=== PATIENT | female | born 1990 | race Caucasian/White ===

== ENCOUNTER 2022-06-14 01:06 | Inpatient (IN) ==
[2022-06-14] MEDS ORDERED: ADENOSINE IV SOLN 3 MG/ML 2 ML VIAL IV STA ×2 (01:23)
[2022-06-14] MEDS ORDERED: SODIUM CHLORIDE 0.9% 1000ML 1,000 ML IV ONE (01:23)
[2022-06-14] MEDS ORDERED: dilTIAZem HCl 5 MG/ML 5 ML VIAL IV ONE (01:41)
[2022-06-14] MEDS ORDERED: dilTIAZem HCl 5 MG/ML 5 ML VIAL IV STA (01:43)
[2022-06-14] MEDS ORDERED: SODIUM CHLORIDE 0.9% 1000ML 2,000 ML IV ONE (01:43)
[2022-06-14] MEDS ORDERED: AMIODARONE / D5W 150 MG/100 ML BAG IV STA (01:51)
[2022-06-14] MEDS ORDERED: 0.2 MICRON FILTER SET 1 EACH IV ONE ×2 (01:51→02:06)
[2022-06-14 02:04] LABS: iSTAT Creatinine 0.8 mg/dl (0.6-1.3); iSTAT Hemoglobin 14.6 g/dl (12.0-16.0); iSTAT Ionized Calcium 1.08 mmol/l (1.12-1.32); iSTAT Potassium 4.1 mmol/L (3.3-5.0)
[2022-06-14 02:12] LABS: Basophils # (auto) 0.08 K/uL (0-0.2); Basophils % (auto) 0.4 %; Eosinophils # (auto) 0.03 K/uL (0-0.50); Eosinophils % (auto) 0.2 %; Hematocrit (blood only) 42.1 % (37.0-47.0); Hemoglobin 13.8 g/dl (12.0-16.0); Immature Granulocytes # (auto) 0.07 K/uL (0.01-0.20); Immature Granulocytes % (auto) 0.4 %; Lymphocytes # (auto) 2.34 K/uL (1.2-3.4); Lymphocytes % (auto) 12.9 %; Mean Corpuscular Hemoglobin 29.6 pg (25.0-34.0); Mean Corpuscular Hgb Conc 32.8 g/dL (32.0-36.0); Mean Corpuscular Volume 90.3 fL (80.0-100.0); Mean Platelet Volume 13.4 fL (9.4-12.4); Monocytes # (auto) 1.07 K/uL (0.11-0.59); Monocytes % (auto) 5.9 %; Neutrophils # (auto) 14.55 K/uL (1.40-6.50); Neutrophils % (auto) 80.2 %; Platelet Count 228 K/uL (130-400); RDW Coefficient of Variation 13.4 % (11.5-14.5); RDW Standard Deviation 44.1 fL (36.4-46.3); Red Blood Count 4.66 M/uL (4.20-5.40); White Blood Count 18.14 K/ul (4.8-10.8)
[2022-06-14] MEDS ORDERED: AMIODARONE / D5W 360 MG/200 ML BAG IV SCH (02:15)
[2022-06-14 02:20] LABS: Alanine Aminotransferase 18 U/L (7-52); Albumin Globulin Ratio 1.1 (0.9-2); Albumin Level 3.8 gm/dl (3.4-5.0); Alkaline Phosphatase 73 U/L (34-104); Anion Gap 10 (3-11); Aspartate Aminotransferase 16 U/L (13-39); BUN Creatinine Ratio 19.3 (10-20); Bilirubin,Total 0.9 mg/dl (0.2-1.0); Blood Urea Nitrogen 16 mg/dl (6-23); Calcium 8.7 mg/dl (8.5-10.1); Carbon Dioxide 21 mmol/L (21-32); Chloride 107 mmol/L (98-107); Est GFR (African American) 108.9 ml/min; Globulin 3.5 gm/dl (2.5-4.0); Glucose 129 mg/dl (70-99(Fasting)); Magnesium 1.9 mg/dl (1.7-2.4); Potassium 4.1 mmol/L (3.5-5.1); Sodium 138 mmol/L (136-145); Total Protein 7.3 gm/dl (6.0-8.3)
[2022-06-14 02:27] LABS: Troponin I High Sensitivity 40.5 pg/ml (0-14)
[2022-06-14 02:33] LABS: Pregnancy Test, Serum Negative (Negative)
--- NOTE | 2022-06-14 02:47 | Emergency Department Note ---
History of Present Illness General Chief complaint: Tachycardia Stated complaint: HIGH HEART RATE,TROUBLE BREATHING Time Seen by Provider: 06/14/22 01:16 History of Present Illness This 32-year-old presents to the ER complaining of chest discomfort and racing heart for the past 3 days steadily getting worse. Patient was just started on BuSpar and hydroxyzine for anxiety and depression by the PCP. Patient denies recent illness, fever, chills, flulike illness, vomiting, diarrhea, alcohol or drug use. No prior heart problems. No excessive caffeine. Allergies Allergy/AdvReac Type Severity Reaction Status Date / Time No Known Allergies Allergy Mild Unverified 11/19/14 06:26 Past Med/Surg History Social History Smoking Status: Never smoker Second Hand Exposure: No; Do You Dip or Chew Tobacco: No; Tobacco Cessation Education Requested by Patient: No Hx Alcohol Use: No Hx Substance Use: No Preferred Language: Peruvian Communication Ability: Effective Inspector Government Property Required: No Beliefs That Will Affect Care: None Current Living Situation: Parent Other Information That Helps Us Care for You: No Feels Safe at Home: Yes Safety Concerns: Feels Safe At This Time Assistive Devices: None Assistive Devices Comment: Reading glasses Review of Systems A total of 10 systems reviewed and were otherwise negative Physical Exam Vital Signs Vital Signs - 24 hr 06/14/22 03:06 06/14/22 02:46 06/14/22 02:46 Pulse Rate 155 H Pulse Rate [Finger] 143 H Pulse Rate from SpO2 Sensor 290 H Respiratory Rate 22 23 Blood Pressure 130/106 H Blood Pressure [Left Arm] 107/78 Blood Pressure Mean 114 Blood Pressure Mean [Left Arm] 87 Pulse Oximetry 94 95 Oxygen Delivery Method 06/14/22 02:50 06/14/22 02:50 06/14/22 03:00 Pulse Rate 155 H 155 H Pulse Rate [Finger] Pulse Rate from SpO2 Sensor 155 H 182 H Respiratory Rate 18 16 Blood Pressure 141/120 H Blood Pressure [Left Arm] Blood Pressure Mean 127 Blood Pressure Mean [Left Arm] Pulse Oximetry 95 94 Oxygen Delivery Method 06/14/22 03:02 06/14/22 03:02 06/14/22 03:04 Pulse Rate 148 H 154 H Pulse Rate [Finger] Pulse Rate from SpO2 Sensor 248 H 234 H Respiratory Rate 16 22 Blood Pressure 77/47 L Blood Pressure [Left Arm] Blood Pressure Mean 57 Blood Pressure Mean [Left Arm] Pulse Oximetry 95 94 Oxygen Delivery Method 06/14/22 03:04 06/14/22 03:06 06/14/22 03:45 Pulse Rate 149 H 141 H Pulse Rate [Finger] Pulse Rate from SpO2 Sensor Respiratory Rate 21 Blood Pressure 105/79 107/78 113/89 Blood Pressure [Left Arm] Blood Pressure Mean 87 87 Blood Pressure Mean [Left Arm] Pulse Oximetry 95 Oxygen Delivery Method Room Air 06/14/22 04:30 Pulse Rate 144 H Pulse Rate [Finger] Pulse Rate from SpO2 Sensor Respiratory Rate Blood Pressure 186/151 H Blood Pressure [Left Arm] Blood Pressure Mean Blood Pressure Mean [Left Arm] Pulse Oximetry Oxygen Delivery Method VITALS: Vitals are noted on the nurse's note and reviewed by myself. Vital signs tachycardic GENERAL: Pleasant female, in no acute distress, nondiaphoretic, well-developed well-nourished. SKIN: The skin was without rashes, erythema, or bruising. There is no tenting of the skin. Capillary reflex less than 2 seconds. HEAD: Normocephalic atraumatic. EARS: External auditory canals clear, tympanic membranes pearly conn without erythema or effusion bilaterally. EYES: Pupils equal round and reactive to light and accommodation. Conjunctivae without injection, sclerae without icterus. Extraocular movements intact. NOSE: Patent, turbinates without inflammation or discharge. MOUTH: Mucous membranes moist. Pharynx without erythema or exudate. Uvula midline. Airway patent. Tongue does not deviate. NECK: Supple without nuchal rigidity. No lymphadenopathy. No thyromegaly. Cervical spine is nontender. No JVD. HEART: Tachycardic rate in the 190s LUNGS: Clear to auscultation bilaterally without wheezes, rales or rhonchi. No retractions or accessory muscle use. ABDOMEN: Positive bowel sounds x 4. Normal tympanic percussion. Soft, nontender, without masses or organomegaly. Gustafson sign negative. No guarding or rebound tenderness. No CVA tenderness MUSCULOSKELETAL: No muscle atrophy, erythema, noted. NEURO: Patient was alert and oriented to person place and time. Normal sensation to light and sharp touch. No focal neurological deficits. Course Administered Medications Buspirone HCl (Buspirone 5 Mg Tab) 5 mg PO BID [facility] Stop: 07/14/22 20:59 Last Admin: 06/14/22 20:16 Dose: 5 mg Documented By: MURPHY Heparin Sodium/Dextrose (Heparin Sodium/Dextrose) 25,000 units in 500 mls @ 28 mls/hr IV .[id number] [facility]; Protocol Stop: 07/14/22 03:59 Last Admin: 06/15/22 01:35 Dose: 1,400 units/hr, 28 mls/hr Documented By: MURPHY Co-signed By: DSRonak Titration: 06/15/22 01:35 Dose: 1,400 units/hr, 28 mls/hr Documented By: MURPHY Co-signed By: DS Titration: 06/14/22 20:10 Dose: 1,400 units/hr, 28 mls/hr Documented By: MURPHY Co-signed By: DS Titration: 06/14/22 18:59 Dose: 1,200 units/hr, 24 mls/hr Documented By: MURPHY Co-signed By: CYNDEE Titration: 06/14/22 13:17 Dose: 1,200 units/hr, 24 mls/hr Documented By: CYNDEE Co-signed By: BANNER Admin: 06/14/22 04:57 Dose: 1,000 units/hr, 20 mls/hr Documented By: JALIL Co-signed By: CHELITA Metoprolol Succinate (Metoprolol Succ 25mg Ext Rel Tab) 25 mg PO BID [facility] Stop: 07/14/22 20:59 Last Admin: 06/14/22 20:15 Dose: 25 mg Documented By: MURPHY Discontinued Medications Adenosine (Adenosine Iv Soln 3 Mg/Ml 2 Ml Vial) 6 mg IV NOW STA Stop: 06/14/22 01:24 Last Admin: 06/14/22 01:59 Dose: 6 mg Documented By: ASW Adenosine (Adenosine Iv Soln 3 Mg/Ml 2 Ml Vial) 12 mg IV NOW STA Stop: 06/14/22 01:24 Last Admin: 06/14/22 01:59 Dose: 12 mg Documented By: ASHLEY Benzocaine/Butamben/Tetracaine HCl (Benzocaine/Tetracain/Butam 50 Appln/5 Gm Can) Confirm Administered Dose 50 appln EXT .STK-MED ONE Stop: 06/14/22 11:15 Last Admin: 06/14/22 17:36 Dose: Not Given Documented By: CYNDEE Diltiazem HCl (Diltiazem Hcl 5 Mg/Ml 5 Ml Vial) Confirm Administered Dose 25 mg IV .STK-MED ONE Stop: 06/14/22 01:42 Last Admin: 06/14/22 01:58 Dose: Not Given Documented By: ASHLEY Diltiazem HCl (Diltiazem Hcl 5 Mg/Ml 5 Ml Vial) 20 mg IV NOW STA Stop: 06/14/22 01:44 Last Admin: 06/14/22 01:58 Dose: 20 mg Documented By: ASHLEY Co-signed By: ASHLEY(2) Furosemide (Furosemide 40 Mg/4 Ml Vial) 40 mg IV ONE ONE Stop: 06/15/22 01:21 Last Admin: 06/15/22 01:31 Dose: 40 mg Documented By: MURPHY Heparin Sodium (Porcine) (Heparin Sod (Porcine) 1000 Unit/Ml) 1 units IV NOW ONE Stop: 06/14/22 03:50 Last Admin: 06/14/22 04:33 Dose: 4,000 units Documented By: JALIL Co-signed By: HECTOR Heparin Sodium (Porcine) (Heparin Sod (Porcine) 1000 Unit/Ml) 4,000 units IV NOW ONE Stop: 06/14/22 20:31 Last Admin: 06/14/22 20:29 Dose: 4,000 units Documented By: MURPHY Co-signed By: TRU Heparin Sodium/Dextrose (Heparin Iv Adult Wt-Based Low-Dose With Bolus Protocol) 1 each IV NOW STA; Protocol Stop: 06/14/22 03:33 Last Admin: 06/14/22 04:38 Dose: Not Given Documented By: JALIL Sodium Chloride (Nss 1000ml) 1,000 mls @ 999 mls/hr IV .Q1H1M ONE Stop: 06/14/22 02:23 Last Infusion: 06/14/22 02:52 Dose: 0 mls/hr Documented By: Admin: 06/14/22 01:58 Dose: 999 mls/hr Documented By: ASHLEY Sodium Chloride (Nss 1000ml) 2,000 mls @ 999 mls/hr IV .Q2H1M ONE Stop: 06/14/22 03:43 Last Infusion: 06/14/22 04:27 Dose: 0 mls/hr Documented By: Admin: 06/14/22 01:58 Dose: 999 mls/hr Documented By: ASHLEY Amiodarone HCl/Dextrose (Nexterone / D5w) 150 mg in 100 mls @ 600 mls/hr IV NOW STA Stop: 06/14/22 02:00 Last Infusion: 06/14/22 02:07 Dose: 0 mls/hr Documented By: ASHLEY Co-signed By: ASHLEY(2) Admin: 06/14/22 01:58 Dose: 600 mls/hr Documented By: ASW Co-signed By: ASHLEY(2) Amiodarone HCl/Dextrose (Nexterone / D5w) 360 mg in 200 mls @ 16.667 mls/hr IV .Q12H [facility] Stop: 07/14/22 02:14 Last Infusion: 06/14/22 09:38 Dose: 0 mg/min, 0 mls/hr Documented By: HEATH Co-signed By: AMAURY Admin: 06/14/22 02:14 Dose: 0.5 mg/min, 16.7 mls/hr Documented By: ASHLEY Co-signed By: ASHLEY(2) Magnesium Sulfate/Dextrose (Magnesium Sulfate / D5w) 1 gm in 100 mls @ 50 mls/hr IV ONE ONE Stop: 06/14/22 11:35 Last Infusion: 06/14/22 11:43 Dose: 0 mls/hr Documented By: Admin: 06/14/22 09:45 Dose: 50 mls/hr Documented By: HEATH Heparin Sodium (Porcine) 4,000 (units/ Syringe) 4 mls @ 10 mls/min IV TODAY@1345 ONE Stop: 06/14/22 13:46 Last Admin: 06/14/22 13:36 Dose: 10 mls/min Documented By: CYNDEE Co-signed By: BOBY Metoprolol Tartrate (Metoprolol Tartrate 50 Mg Tab) 25 mg PO NOW STA Stop: 06/14/22 03:33 Last Admin: 06/14/22 03:45 Dose: 25 mg Documented By: HECTOR Metoprolol Tartrate (Metoprolol Tartrate 1 Mg/Ml Vial) 5 mg IV NOW STA Stop: 06/14/22 03:33 Last Admin: 06/14/22 03:45 Dose: 5 mg Documented By: KMF Metoprolol Tartrate (Metoprolol Tartrate 1 Mg/Ml Vial) 5 mg IV NOW STA Stop: 06/14/22 04:25 Last Admin: 06/14/22 04:30 Dose: 5 mg Documented By: JALIL Metoprolol Tartrate (Metoprolol Tartrate 25 Mg Tab) 25 mg PO Q6H [facility] Stop: 07/14/22 07:59 Last Admin: 06/14/22 09:54 Dose: 25 mg Documented By: HEATH Metoprolol Tartrate (Metoprolol Tartrate 1 Mg/Ml Vial) 2.5 mg IV NOW STA Stop: 06/14/22 06:41 Last Admin: 06/14/22 07:13 Dose: 2.5 mg Documented By: LMP Critical Care Time Critical Care Time: Yes Total Critical Care Time: 65 I have personally spent 65 minutes of critical care time in the direct management of this patient. This includes bedside care, interpretation of diagnostic studies, and testing, discussion with consultants, patient, and family members, and other required patient management activities. This 65 minutes is in excess of all separately billable procedures. Medical Decision Making Medical Records Attestation: I reviewed the patient's medical records. Home Medications Current Medication List: was personally reviewed by me Laboratory Data Attestation: I reviewed the patient's lab results. 06/14/22 01:45 06/14/22 01:45 Lab Results 06/14/22 06/14/22 06/14/22 Range/Units 01:45 01:45 01:45 WBC 18.14 H (4.8-10.8) K/ul RBC 4.66 (4.20-5.40) M/uL Hgb 13.8 (12.0-16.0) g/dl POC Hgb (12.0-16.0) g/dl Hct 42.1 (37.0-47.0) % POC Hct (37-47) % MCV 90.3 (80.0-100.0) fL MCH 29.6 (25.0-34.0) pg MCHC 32.8 (32.0-36.0) g/dL RDW Std Deviation 44.1 (36.4-46.3) fL RDW Coeff of Sherin 13.4 (11.5-14.5) % Plt Count 228 (130-400) K/uL MPV 13.4 H (9.4-12.4) fL Immature Gran % (Auto) 0.4 % Neut % (Auto) 80.2 % Lymph % (Auto) 12.9 % [place] % (Auto) 5.9 % Eos % (Auto) 0.2 % Baso % (Auto) 0.4 % Neut # (Auto) 14.55 H (1.40-6.50) K/uL Lymph # (Auto) 2.34 (1.2-3.4) K/uL [place] # (Auto) 1.07 H (0.11-0.59) K/uL Eos # (Auto) 0.03 (0-0.50) K/uL Baso # (Auto) 0.08 (0-0.2) K/uL Immature Gran # (Auto) 0.07 (0.01-0.20) K/uL PT (9.0-12.0) Seconds INR (0.9-1.1) APTT (21.0-31.0) Seconds PTT Ratio POC Sodium (135-144) mmol/L Sodium 138 (136-145) mmol/L POC Potassium (3.3-5.0) mmol/L Potassium 4.1 (3.5-5.1) mmol/L POC Chloride (101-112) mmol/L Chloride 107 (98-107) mmol/L Carbon Dioxide 21 (21-32) mmol/L POC Total CO2 (24-31) mmol/L Anion Gap 10 (3-11) POC Anion Gap (16-25) mmol/L POC BUN (7-18) mg/dl BUN 16 (6-23) mg/dl Creatinine 0.83 (0.6-1.2) mg/dl POC Creatinine (0.6-1.3) mg/dl Est Cr Clr Drug Dosing Not Reportable Est GFR ( Amer) 108.9 ml/min Est GFR (Non-Af Amer) 94.0 ml/min BUN/Creatinine Ratio 19.3 (10-20) Glucose 129 H (70-99(Fasting)) mg/dl POC Glucose (other) (70-99) mg/dl Calcium 8.7 (8.5-10.1) mg/dl POC Ioniz Calcium Belia (1.12-1.32) mmol/l Magnesium 1.9 (1.7-2.4) mg/dl Total Bilirubin 0.9 (0.2-1.0) mg/dl AST 16 (13-39) U/L ALT 18 (7-52) U/L Alkaline Phosphatase 73 (34-104) U/L Troponin I High Sens 40.5 H (0-14) pg/ml B-Natriuretic Peptide (0-100) pg/ml Total Protein 7.3 (6.0-8.3) gm/dl Albumin 3.8 (3.4-5.0) gm/dl Globulin 3.5 (2.5-4.0) gm/dl Albumin/Globulin Ratio 1.1 (0.9-2) TSH 1.552 (0.300-4.500) uIu/ml HCG, Qual (Negative) SARS-CoV-2, RNA, NAAT (NEGATIVE) 06/14/22 06/14/22 06/14/22 Range/Units 01:45 01:45 01:45 WBC (4.8-10.8) K/ul RBC (4.20-5.40) M/uL Hgb (12.0-16.0) g/dl POC Hgb (12.0-16.0) g/dl Hct (37.0-47.0) % POC Hct (37-47) % MCV (80.0-100.0) fL MCH (25.0-34.0) pg MCHC (32.0-36.0) g/dL RDW Std Deviation (36.4-46.3) fL RDW Coeff of Sherin (11.5-14.5) % Plt Count (130-400) K/uL MPV (9.4-12.4) fL Immature Gran % (Auto) % Neut % (Auto) % Lymph % (Auto) % [place] % (Auto) % Eos % (Auto) % Baso % (Auto) % Neut # (Auto) (1.40-6.50) K/uL Lymph # (Auto) (1.2-3.4) K/uL [place] # (Auto) (0.11-0.59) K/uL Eos # (Auto) (0-0.50) K/uL Baso # (Auto) (0-0.2) K/uL Immature Gran # (Auto) (0.01-0.20) K/uL PT 13.1 H (9.0-12.0) Seconds INR 1.2 H (0.9-1.1) APTT 27.6 (21.0-31.0) Seconds PTT Ratio 1.0 POC Sodium (135-144) mmol/L Sodium (136-145) mmol/L POC Potassium (3.3-5.0) mmol/L Potassium (3.5-5.1) mmol/L POC Chloride (101-112) mmol/L Chloride (98-107) mmol/L Carbon Dioxide (21-32) mmol/L POC Total CO2 (24-31) mmol/L Anion Gap (3-11) POC Anion Gap (16-25) mmol/L POC BUN (7-18) mg/dl BUN (6-23) mg/dl Creatinine (0.6-1.2) mg/dl POC Creatinine (0.6-1.3) mg/dl Est Cr Clr Drug Dosing Est GFR ( Amer) ml/min Est GFR (Non-Af Amer) ml/min BUN/Creatinine Ratio (10-20) Glucose (70-99(Fasting)) mg/dl POC Glucose (other) (70-99) mg/dl Calcium (8.5-10.1) mg/dl POC Ioniz Calcium Belia (1.12-1.32) mmol/l Magnesium (1.7-2.4) mg/dl Total Bilirubin (0.2-1.0) mg/dl AST (13-39) U/L ALT (7-52) U/L Alkaline Phosphatase (34-104) U/L Troponin I High Sens (0-14) pg/ml B-Natriuretic Peptide 649 H (0-100) pg/ml Total Protein (6.0-8.3) gm/dl Albumin (3.4-5.0) gm/dl Globulin (2.5-4.0) gm/dl Albumin/Globulin Ratio (0.9-2) TSH (0.300-4.500) uIu/ml HCG, Qual Negative (Negative) SARS-CoV-2, RNA, NAAT (NEGATIVE) 06/14/22 06/14/22 06/14/22 Range/Units 01:48 02:11 04:18 WBC (4.8-10.8) K/ul RBC (4.20-5.40) M/uL Hgb (12.0-16.0) g/dl POC Hgb 14.6 (12.0-16.0) g/dl Hct (37.0-47.0) % POC Hct 43 (37-47) % MCV (80.0-100.0) fL MCH (25.0-34.0) pg MCHC (32.0-36.0) g/dL RDW Std Deviation (36.4-46.3) fL RDW Coeff of Sherin (11.5-14.5) % Plt Count (130-400) K/uL MPV (9.4-12.4) fL Immature Gran % (Auto) % Neut % (Auto) % Lymph % (Auto) % [place] % (Auto) % Eos % (Auto) % Baso % (Auto) % Neut # (Auto) (1.40-6.50) K/uL Lymph # (Auto) (1.2-3.4) K/uL [place] # (Auto) (0.11-0.59) K/uL Eos # (Auto) (0-0.50) K/uL Baso # (Auto) (0-0.2) K/uL Immature Gran # (Auto) (0.01-0.20) K/uL PT (9.0-12.0) Seconds INR (0.9-1.1) APTT (21.0-31.0) Seconds PTT Ratio POC Sodium 141 (135-144) mmol/L Sodium (136-145) mmol/L POC Potassium 4.1 (3.3-5.0) mmol/L Potassium (3.5-5.1) mmol/L POC Chloride 106 (101-112) mmol/L Chloride (98-107) mmol/L Carbon Dioxide (21-32) mmol/L POC Total CO2 22 L (24-31) mmol/L Anion Gap (3-11) POC Anion Gap 18.0 (16-25) mmol/L POC BUN 15 (7-18) mg/dl BUN (6-23) mg/dl Creatinine (0.6-1.2) mg/dl POC Creatinine 0.8 (0.6-1.3) mg/dl Est Cr Clr Drug Dosing Est GFR ( Amer) ml/min Est GFR (Non-Af Amer) ml/min BUN/Creatinine Ratio (10-20) Glucose (70-99(Fasting)) mg/dl POC Glucose (other) 133 H (70-99) mg/dl Calcium (8.5-10.1) mg/dl POC Ioniz Calcium Belia 1.08 L (1.12-1.32) mmol/l Magnesium (1.7-2.4) mg/dl Total Bilirubin (0.2-1.0) mg/dl AST (13-39) U/L ALT (7-52) U/L Alkaline Phosphatase (34-104) U/L Troponin I High Sens 47.2 H (0-14) pg/ml B-Natriuretic Peptide (0-100) pg/ml Total Protein (6.0-8.3) gm/dl Albumin (3.4-5.0) gm/dl Globulin (2.5-4.0) gm/dl Albumin/Globulin Ratio (0.9-2) TSH (0.300-4.500) uIu/ml HCG, Qual (Negative) SARS-CoV-2, RNA, NAAT NEGATIVE (NEGATIVE) Imaging Data Attestation: I personally reviewed and interpreted this imaging study as follows: MDM Narrative Prior records/ancillary studies reviewed. Triage Nursing notes reviewed. Additional history obtained from family. The patient's history was concerning for palpitations. Differential diagnosis: Etiologies such as premature contractions, electrolyte abnormality, cardiac dysrhythmia, thyroid dysfunction, pulmonary embolism, infection, gastrointestinal, as well as others were entertained. Physical examination: Benign as above. ER treatment provided: Valsalva maneuvers, adenosine, Cardizem, amiodarone, 2 L IV fluids were ordered Limited bedside ultrasound shows no pericardial effusion per my independent interpretation Heparin and Lopressor ordered per cardiology's recommendations. On reassessment the patient felt better. Diagnostic interpretation by me: An order was placed for continuous cardiac monitoring. The monitor shows a rate of 120-230 with a rapid atrial flutter rhythm per my interpretation. The electrocardiogram was ordered for tachycardia. EKG: Poor baseline, ventricular rate of 179, no obvious ST elevation, hard to decipher P waves. Impression supraventricular rhythm concerning for SVT versus A-fib or a flutter with RVR per my independent interpretation The monitor was reviewed after adenosine and patient was in a flutter on the monitor. The labs Independently Interpreted by myself revealed elevated troponin. Leukocytosis. Negative hCG Imaging studies: Chest x-ray with no acute consolidation, pneumothorax or free air per my independent interpretation Consultation: A consultation was placed with the pharmacist Mitchell and states that hydroxyzine can cause prolonged QT and BuSpar does not cause tachydysrhythmias. I spoke with the Hospitalist. The case was discussed and diagnostics were reviewed. The patient was evaluated in the ER for further treatment. I consulted cardiology as the patient was still tachycardic and her blood pressure is dropping. Dr. Mitchell recommends Lopressor p.o. and IV heparin low- dose and if she becomes hypotensive to follow ACLS protocol. This appears to be consistent with new onset super ventricular tachycardia con cerning for a flutter. Patient initially came in with a tachycardic rhythm in the 150s to the 200s. EKG was hard to decipher secondary to poor baseline. After adenosine the monitor was showing a flutter patient was given Cardizem and then amiodarone as the rhythm did not slow down. She was started on a drip. She was reassessed multiple times. Medicine was consulted and the case was discussed. The new medicines were discussed with the pharmacist and states she does not believe this could cause the symptoms today. Patient is agreeable to treatment plan of admission. Medicine will admit.. By the evaluation outlined above emergent etiologies such as electrolyte abnormality, , thyroid dysfunction, infection, as well as others were deemed relatively unlikely. The pt informed about the findings as listed above. All questions were answered and pleased with the treatment. The chart was completed utilizing [employer] Speech voice recognition software. Grammatical errors, random word insertions, pronoun errors, and incomplete sentences are an occassional consequence of this system due to software limitations, ambient noise, and hardware issues. Any formal questions or concerns about the content, text, or information contained within the body of this dictation should be directly addressed to the physician broker assistant for clarification. Impression & Plan Atrial flutter with rapid ventricular response Discharge Plan Visit Data Chief Complaint: Tachycardia Stated Complaint: HIGH HEART RATE,TROUBLE BREATHING ED Provider: Ashanti Montes ED Midlevel Provider: Juanita Salazar Discharge Problem: Atrial flutter with rapid ventricular response Patient Disposition: Admitted As Inpatient Condition: Fair Discharge Instructions Interventions: ED Discharge Assessment Last Done: 06/14/22 04:52
[2022-06-14] MEDS ORDERED: METOPROLOL TARTRATE 50 MG TAB PO STA (03:32)
[2022-06-14] MEDS ORDERED: Heparin IV Adult Wt-Based Low-Dose WITH Bolus Protocol IV STA (03:32)
[2022-06-14] MEDS ORDERED: METOPROLOL TARTRATE 1 MG/ML VIAL IV STA ×3 (03:32→06:40)
[2022-06-14] MEDS ORDERED: HEPARIN SOD (PORCINE) 1000 UNIT/ML IV ONE ×3 (03:49→20:30)
[2022-06-14 04:55] LABS: INR 1.2 (0.9-1.1); Partial Thromboplastin Time 27.6 Seconds (21.0-31.0); Prothrombin Time 13.1 Seconds (9.0-12.0)
[2022-06-14] MEDS: HEPARIN SODIUM/DEXTROSE 25,000 UNITS/500 ML BAG IV SCH (04:57)
[2022-06-14] MEDS ORDERED: ACETAMINOPHEN 325 MG TAB PO PRN (05:49)
[2022-06-14] MEDS ORDERED: NITROGLYCERIN SL 0.4 MG/TAB TAB SL PRN (05:49)
[2022-06-14] MEDS ORDERED: POLYETHYLENE (MIRALAX) 17 GM PACK PO PRN (05:49)
[2022-06-14] MEDS ORDERED: METOPROLOL TARTRATE 1 MG/ML VIAL IV PRN (05:49)
--- NOTE | 2022-06-14 07:07 | XRay Report ---
SINGLE VIEW CHEST CLINICAL HISTORY: Atypical chest pain. Tachycardia. FINDINGS: An AP, portable, upright chest radiograph is obtained. No prior studies are available for c omparison at the time of dictation. The examination is degraded by portable technique, large body hab itus, and patient rotation. The cardiac silhouette appears enlarged. There is prominence of the pulm onary vasculature. The lungs and pleural spaces are clear noting bibasilar atelectasis. No large pleu ral effusion or pneumothorax is seen. The bony thorax is grossly intact. IMPRESSION: 1. Apparent cardiac enlargement and prominence of the pulmonary vasculature. Some of this may be tech nical. Correlate clinically for evidence of fluid overload/congestive change. 2. No airspace consolidation or large pleural effusion is identified. ACT 112: Negative or not required by law. Electronically signed by: Gordy Renteria M.D. 06/14/2022 7:06 AM
[2022-06-14 07:29] LABS: Basophils # (auto) 0.07 K/uL (0-0.2); Basophils % (auto) 0.5 %; Eosinophils # (auto) 0.02 K/uL (0-0.50); Eosinophils % (auto) 0.1 %; Hematocrit (blood only) 39.9 % (37.0-47.0); Immature Granulocytes # (auto) 0.07 K/uL (0.01-0.20); Immature Granulocytes % (auto) 0.5 %; Lymphocytes # (auto) 2.77 K/uL (1.2-3.4); Lymphocytes % (auto) 18.2 %; Mean Corpuscular Hemoglobin 29.6 pg (25.0-34.0); Mean Corpuscular Hgb Conc 32.6 g/dL (32.0-36.0); Mean Corpuscular Volume 90.9 fL (80.0-100.0); Mean Platelet Volume 13.9 fL (9.4-12.4); Monocytes # (auto) 0.78 K/uL (0.11-0.59); Monocytes % (auto) 5.1 %; Neutrophils # (auto) 11.47 K/uL (1.40-6.50); Neutrophils % (auto) 75.6 %; Platelet Count 231 K/uL (130-400); RDW Coefficient of Variation 13.4 % (11.5-14.5); RDW Standard Deviation 44.1 fL (36.4-46.3); Red Blood Count 4.39 M/uL (4.20-5.40); White Blood Count 15.18 K/ul (4.8-10.8)
--- NOTE | 2022-06-14 07:34 | History and Physical Report ---
DATE OF ADMISSION: 06/14/2022 CHIEF COMPLAINT: Palpitation. HISTORY OF PRESENT ILLNESS: A 32-year-old female with past medical history significant for morbid obesity, generalized anxiety disorder, depression, panic attacks, stress reaction, history of tonsillitis, presents with palpitations going on since last Tuesday. She initially felt dizzy, short of breath and chest pain which all got resolved, but the palpitations is not getting better. That is the reason she came here. Initially when she came, her heart rates 150s-200s seemed SVT, and she was given adenosine 6 and 12 mg and then she broke into what looks like atrial flutter. She was given IV Cardizem 20 mg but the heart rate was still high, so she was started on amiodarone bolus 150 mg and started on drip. Heart rate was still in the 140s, blood pressure was soft though difficult to accurately BP because of body habitus.. ER called cardiology on-call and she was started on low-dose heparin given , 25 mg p.o. Lopressor and IV Lopressor 5 mg and monitored. The patient is currently alert and awake. Denies any chest pain, denies any shortness of breath, no nausea, no abdominal pain, no headache, no blurred visions, no runny nose, no cough, no fevers. Appetite is okay, eating is okay. Earlier she had nausea, but it improved. Normal bowel and bladder movements. Denies any hematuria, denies any blood in stools or black stools. Denies any swelling in the legs. ALLERGIES: No known drug allergies. PAST MEDICAL HISTORY: As mentioned above. PAST SURGICAL HISTORY: None. MEDICATIONS: The patient was recently started on buspirone and hydroxyzine for anxiety. FAMILY HISTORY: Significant for mother has diabetes, hypertension. Aunt has breast cancer. SOCIAL HISTORY: Single, no smoking, no alcohol, no drug use. REVIEW OF SYSTEMS: As per HPI. Rest of the review of systems is negative. PHYSICAL EXAMINATION: GENERAL: The patient is morbidly obese. VITAL SIGNS: Temperature 36.3, pulse 144, respiratory rate 21, blood pressure 113/89, oxygen 93% on room air. HEENT: Pupils equal, round and reactive to light. Oral mucosa moist. NECK: No JVD, no neck masses. CARDIOVASCULAR: S1 and S2 heard. Tachycardia. No murmurs. RESPIRATORY SYSTEM: Normal AP diameter. No accessory muscle use. Occasional wheezing, no crackles. ABDOMEN: Soft, bowel sounds present, nontender, no distention. CENTRAL NERVOUS SYSTEM: Alert and oriented. Speech is clear. No facial droop. Obeys simple commands. Moves extremities. EXTREMITIES: Pedal edema present, no erythema seen. LABORATORY DATA: WBC 18.1, hemoglobin 13.8, hematocrit 42.1, platelets 228. Sodium 138, potassium 4.1, chloride 107, CO2 of 21, BUN 16, creatinine 0.8, serum glucose 129, calcium 8.7, magnesium 1.9, total bilirubin 0.9, AST 116, ALT 18, alkaline phosphatase 73. Troponin I high sensitivity initial 40. BNP pending. TSH 1.5. HCG qualitative negative. SARS-CoV-2 rapid test negative. IMAGING DATA: Chest x-ray: Cardiomegaly, possible mild congestion. EKG: Shows sinus tachycardia at rate of 145, left bundle-branch block, prolonged QTc of 568. ASSESSMENT AND PLAN: This is a 32-year-old female presents with SVT, atrial flutt 1. Supraventricular tachycardia and atrial flutter. Still having elevated heart rate and she was given adenosine and started on amiodarone drip.Currently As per Cardiology recommendation, she was started on low-dose IV heparin and given p.o. 25 mg of Lopressor and given IV Lopressor 5 mg x2 so far. We will continue with p.o. Lopressor 25 mg p.o. q. 6 hours and IV Lopressor p.r.n. We will follow echocardiogram. Closely monitor in the tele floor. 2. Mild elevation of troponin, most likely demand ischemia. We will follow serial enzymes and follow echocardiogram. Possible congestive heart failure. We will give a small dose of Lasix if BP allows. She is saturating okay on room air. We will monitor for now. We will follow echo report. 3. Morbid obesity: Needs counseling. Needs a sleep study as outpatient. We will do nocturnal pulse ox study while the patient in the hospital. 4.Prolonged Qt avoid qt prolonging drugs 5. Deep venous thrombosis prophylaxis: Started on low-dose IV heparin. DISPOSITION: Closely monitor in tele floor. Level 1 full code. Expect to discharge home and follow with family doctor. Job ID: [id number] [facility]
[2022-06-14 07:46] LABS: BUN Creatinine Ratio 20.8 (10-20); Calcium 8.5 mg/dl (8.5-10.1); Creatinine Clr Calc Pharmacy 177.7 ml/min; Est GFR (African American) 119.2 ml/min; Est GFR (Non-African American) 102.9 ml/min; Potassium 4.1 mmol/L (3.5-5.1)
[2022-06-14 07:53] LABS: Troponin I High Sensitivity 37.3 pg/ml (0-14)
[2022-06-14] MEDS ORDERED: METOPROLOL TARTRATE 25 MG TAB PO SCH (08:00)
[2022-06-14] MEDS ORDERED: MAGNESIUM SULFATE / D5W 1 GM/100 ML BAG IV ONE (09:36)
--- NOTE | 2022-06-14 09:44 | Cardiology Consultation ---
Date of Consultation June 14, 2022 Assessment & Plan (1) Atrial flutter with rapid ventricular response: (2) HFrEF (heart failure with reduced ejection fraction): (3) Elevated white blood cell count, unspecified: Plan Patient admitted with tachycardia, SVT vs atrial flutter. Failed to convert with adenosine. As HR slowed, prominent flutter waves noted. Started on IV heparin and IV amiodarone overnight. HR's improved to 140's, but remains in persistent atrial flutter. Metoprolol tartrate 25 mg q 6 hours initiated. Amiodarone stopped this morning due to prolonged QT interval. BP borderline hypotensive limiting medications. Echo obtained demonstrating severely reduced LVEF at 20% with global hypokinesis. Likely tachycardia induced. Patient NPO this morning Recommend proceeding with KAYLA/CV this morning with Dr. Mitchell. Continue IV heparin. Will need evidence based HF medications/treatment as BP allows after cardioversion. Would recommend sleep med evaluation. High probability of INDERJIT. Case discussed in detail with Dr. Mitchell. Will follow. Supervising Physician Co-Signing Physician Notes Patient was seen and personally examined. 32-year-old female without prior history of cardiac disease who presents with symptoms of increasing shortness of breath and tachycardia since at least Tuesday of past week Presented to the ER with wide-complex tachycardia with very rapid ventricular response. Administration of adenosine demonstrated flutter waves. Rates have slowed from ventricular response rate of nearly 200-1 40-1 50 with improvement in symptoms though still tachycardic. Echocardiogram reflects newly observed diffuse cardiomyopathy Morbidly obese young female no acute distress stress No marked volume overload or congestive heart failure on exam Blood pressure is marginal 1. Atrial flutter with rapid response with poor tolerance. Patient referred for KAYLA guided synchronized electrical cardioversion today. Procedure and risks explained in detail with the patient. Anticoagulation initiated last evening 2. Newly observed cardiomyopathy question tachycardia mediated versus cardiomyopathy induced arrhythmia. Left bundle branch block on EKG Full assessment as described above History of Present Illness Reason for Consultation: Atrial flutter RVR Requesting Physician: Dr. Galvin Attending Physician: Dr. Mitchell History of Present Illness Patient is a 32 year old female with history of morbid obesity, anxiety/depression. Last month, patient was started on Wellbutrin. Within a few weeks she developed rash on her trunk and upper/lower extremities. Welbutrin was stopped and rash slowly improved with Benadryl. No need for steroids. On 06/02, patient was started on Buspar. No recurrent rash. She reports she was in usual state of health until last Tuesday when she began to feel weak, tired, SOB with activity, and dizziness. She contacted her PCP and they recommended home COVID test was negative. Appointment was then req uested, however over the weekend patient reports her symptoms progressed with worsening palpitations and SOB with minimal activity. She came to the ER and found to have tachycardia, initially thought to be SVT at 180 bmp. She was treated with several boluses of adenosine, which improved HR's, but failed to convert to NSR. As HR slowed, EKG was consistent with atrial flutter. She was started on diltiazem gtt but this was stopped due to hypotension. She was then started on IV amiodarone, with improved HR's in the 140's but remained in persistent atrial flutter. WBC elevated. No fevers. No recent steroid use. No recent cough or chills. No respiratory symptoms. no urinary symptoms. Patient denies history of cardiovascular problems. no prior arrhythmias. No history of valvular disease. She reports her mother has "heart problems" but is uncertain as to details. Patient denies drug use. No significant caffeine intake. No other supplements or stimulants. At time of consult, patient feeling ok. Laying supine in bed comfortably. Notes SOB with minimal exertional and palpitations. Comfortable at rest. Dizziness improved. Denies chest pain. No fever, cough, chills. Patient denies prior sleep med evaluation. Allergies Allergy/AdvReac Type Severity Reaction Status Date / Time No Known Allergies Allergy Mild Unverified 11/19/14 06:26 Patient History Social History Smoking Status: Never smoker Second Hand Exposure: No; Do You Dip or Chew Tobacco: No; Tobacco Cessation Education Requested by Patient: No Hx Alcohol Use: No Hx Substance Use: No Preferred Language: Austrian Communication Ability: Effective [employer] Required: No Beliefs That Will Affect Care: None Current Living Situation: Parent Other Information That Helps Us Care for You: No Feels Safe at Home: Yes Safety Concerns: Feels Safe At This Time Assistive Devices: Glasses Assistive Devices Comment: Reading glasses Review of Systems Review of Systems: All systems reviewed & are unremarkable except as noted in HPI & below Physical Exam Constitutional: WD/WN, vitals as above + morbidly obese; no acute distress Neck: + thick neck Respiratory: no respiratory distress Auscultation: + diminished lung sounds; no crackles, no rales and no rhonchi Cardiovascular: Rate/Rhythm: + tachycardic Heart Sounds: no murmur (Distant heart sounds, no audible murmur) Vessels: no JVD (unable to assess) Extremities: + edema (1+ edema b/l) Gastrointestinal (Abdomen): normal bowel sounds, soft, nontender, no hepatosplenomegaly Musculoskeletal: no cyanosis or clubbing, extremities motor strength 5/5 Skin: no rashes, warm and dry Neurologic: PERRL, EOMI, accommodation nl, no face palsy, no dysarthria Psychiatric: A+Ox3, euthymic affect Results & Data Vital Signs (Past 12 Hours) Vital Signs Temp Pulse Pulse Resp BP BP Pulse Ox 06/14/22 08:20 36.6 C 125 H 20 89/85 L 92 06/14/22 05:45 142 H 06/14/22 05:49 36.9 C 143 H 20 106/73 06/14/22 04:30 144 H 186/151 H 06/14/22 03:45 141 H 113/89 06/14/22 03:06 149 H 21 107/78 95 06/14/22 03:04 105/79 06/14/22 03:04 154 H 22 94 06/14/22 03:02 77/47 L 06/14/22 03:02 148 H 16 95 06/14/22 03:00 155 H 16 94 06/14/22 02:50 155 H 18 95 06/14/22 02:50 141/120 H 06/14/22 02:46 155 H 23 95 06/14/22 02:46 130/106 H 06/14/22 02:40 156 H 23 98 06/14/22 02:40 208/156 H 06/14/22 02:30 155 H 22 95 06/14/22 02:20 153 H 22 94 06/14/22 02:20 189/164 H 06/14/22 02:18 158/116 H 06/14/22 02:18 154 H 18 94 06/14/22 02:11 152 H 21 94 06/14/22 02:11 140/98 06/14/22 02:10 151 H 21 94 06/14/22 02:01 158 H 20 94 06/14/22 02:01 141/111 H 06/14/22 02:00 158 H 93 06/14/22 03:06 143 H 22 107/78 94 06/14/22 02:39 155 H 22 208/156 H 95 06/14/22 02:18 153 H 22 158/116 H 94 06/14/22 01:56 158/113 H 06/14/22 01:56 153 H 21 94 06/14/22 01:50 154 H 24 94 06/14/22 01:50 154/103 H 06/14/22 01:45 142/106 H 06/14/22 01:45 173 H 20 06/14/22 01:42 179 H 27 H 06/14/22 01:42 118/100 06/14/22 01:40 167 H 28 H 06/14/22 01:32 147/95 H 06/14/22 01:32 183 H 36 H 06/14/22 01:31 185 H 22 06/14/22 01:23 176 H 29 H 06/14/22 01:49 160 H 22 142/106 H 95 06/14/22 01:40 86 06/14/22 01:23 192 H 06/14/22 01:11 36.3 C L 155 H 22 110/76 96 O2 Del Method 06/14/22 08:20 Room Air 06/14/22 05:45 06/14/22 05:49 Room Air 06/14/22 04:30 06/14/22 03:45 06/14/22 03:06 Room Air 06/14/22 03:04 06/14/22 03:04 06/14/22 03:02 06/14/22 03:02 06/14/22 03:00 06/14/22 02:50 06/14/22 02:50 06/14/22 02:46 06/14/22 02:46 06/14/22 02:40 06/14/22 02:40 06/14/22 02:30 06/14/22 02:20 06/14/22 02:20 06/14/22 02:18 06/14/22 02:18 06/14/22 02:11 06/14/22 02:11 06/14/22 02:10 06/14/22 02:01 06/14/22 02:01 06/14/22 02:00 06/14/22 03:06 06/14/22 02:39 Room Air 06/14/22 02:18 Room Air 06/14/22 01:56 06/14/22 01:56 06/14/22 01:50 06/14/22 01:50 06/14/22 01:45 06/14/22 01:45 06/14/22 01:42 06/14/22 01:42 06/14/22 01:40 06/14/22 01:32 06/14/22 01:32 06/14/22 01:31 06/14/22 01:23 06/14/22 01:49 Room Air 06/14/22 01:40 06/14/22 01:23 06/14/22 01:11 Room Air Laboratory Results Cardiac Enzymes 06/14/22 06/14/22 06/14/22 Range/Units 01:45 01:45 04:18 AST 16 (13-39) U/L Troponin I High Sens 40.5 H 47.2 H (0-14) pg/ml B-Natriuretic Peptide 649 H (0-100) pg/ml 06/14/22 Range/Units 06:52 AST (13-39) U/L Troponin I High Sens 37.3 H (0-14) pg/ml B-Natriuretic Peptide (0-100) pg/ml Coagulation 06/14/22 06/14/22 Range/Units 01:45 01:45 PT 13.1 H (9.0-12.0) Seconds APTT 27.6 (21.0-31.0) Seconds B-Natriuretic Peptide 649 H (0-100) pg/ml CBC 06/14/22 06/14/22 Range/Units 01:45 06:52 WBC 18.14 H 15.18 H (4.8-10.8) K/ul RBC 4.66 4.39 (4.20-5.40) M/uL Hgb 13.8 13.0 (12.0-16.0) g/dl Hct 42.1 39.9 (37.0-47.0) % Plt Count 228 231 (130-400) K/uL Neut # (Auto) 14.55 H 11.47 H (1.40-6.50) K/uL Lymph # (Auto) 2.34 2.77 (1.2-3.4) K/uL [place] # (Auto) 1.07 H 0.78 H (0.11-0.59) K/uL Eos # (Auto) 0.03 0.02 (0-0.50) K/uL Baso # (Auto) 0.08 0.07 (0-0.2) K/uL Comprehensive Metabolic Panel 06/14/22 06/14/22 Range/Units 01:45 06:52 Sodium 138 140 (136-145) mmol/L Potassium 4.1 4.1 (3.5-5.1) mmol/L Chloride 107 109 H (98-107) mmol/L Carbon Dioxide 21 22 (21-32) mmol/L BUN 16 16 (6-23) mg/dl Creatinine 0.83 0.77 (0.6-1.2) mg/dl Glucose 129 H 114 H (70-99(Fasting)) mg/dl Calcium 8.7 8.5 (8.5-10.1) mg/dl AST 16 (13-39) U/L ALT 18 (7-52) U/L Alkaline Phosphatase 73 (34-104) U/L Total Protein 7.3 (6.0-8.3) gm/dl Albumin 3.8 (3.4-5.0) gm/dl Intake and Output 06/13/22 06/14/22 06/14/22 22:59 06:59 14:59 Intake Total 3100 / 3100 124 / 124 Balance 3100 / 3100 124 / 124 Intake: IV 3100 / 3100 124 / 124 Amiodarone / D5w 150 mg In 100 100 / 100 ml @ 600 mls/hr IV NOW STA Rx#: [id number] Amiodarone / D5w 360 mg In 200 124 / 124 ml @ 0.5 MG/MIN 16.667 mls/hr IV .Q12H HERNADNEZ Rx#:[id number] Sodium Chloride 0.9% 1000ML 2, 3000 / 3000 000 ml @ 999 mls/hr IV .Q2H1M ONE Rx#:[id number] Other: Weight 187.2 kg Weight Measurement Method Standing Scale Diagnostic Findings EKG on arrival: Atrial flutter vs SVT with LBBB pattern at 180 bpm Repeat EKG after adenosine: Probable 2:1 atrial flutter with LBBB Telemetry reviewed: Atrial flutter currently at 140 bpm Impressions Chest X-Ray 06/14/22 02:07 SINGLE VIEW CHEST CLINICAL HISTORY: Atypical chest pain. Tachycardia. FINDINGS: An AP, portable, upright chest radiograph is obtained. No prior studies are available for comparison at the time of dictation. The examination is degraded by portable technique, large body habitus, and patient rotation. The cardiac silhouette appears enlarged. There is prominence of the pulmonary vasculature. The lungs and pleural spaces are clear noting bibasilar atelectasis. No large pleural effusion or pneumothorax is seen. The bony thorax is grossly intact. IMPRESSION: 1. Apparent cardiac enlargement and prominence of the pulmonary vasculature. Some of this may be technical. Correlate clinically for evidence of fluid overload/congestive change. 2. No airspace consolidation or large pleural effusion is identified. ACT 112: Negative or not required by law. Electronically signed by: Gordy Renteria M.D. 06/14/2022 7:06 AM Medications Administered Current Inpatient Medications Acetaminophen (Acetaminophen 325 Mg Tab) 650 mg PO Q4H PRN PRN Reason: Pain or Fever Stop: 07/14/22 05:48 Heparin Sodium/Dextrose (Heparin Sodium/Dextrose) 25,000 units in 500 mls @ 20 mls/hr IV .Q24H [facility]; Protocol Stop: 07/14/22 03:59 Last Admin: 06/14/22 04:57 Dose: 1,000 units/hr, 20 mls/hr Magnesium Sulfate/Dextrose (Magnesium Sulfate / D5w) 1 gm in 100 mls @ 50 mls/hr IV ONE ONE Stop: 06/14/22 11:35 Last Admin: 06/14/22 09:45 Dose: 50 mls/hr Metoprolol Tartrate (Metoprolol Tartrate 25 Mg Tab) 25 mg PO Q6H [facility] Stop: 07/14/22 07:59 Last Admin: 06/14/22 09:54 Dose: 25 mg Metoprolol Tartrate (Metoprolol Tartrate 1 Mg/Ml Vial) 5 mg IV Q6 PRN PRN Reason: Tachycardia Stop: 07/14/22 05:48 Nitroglycerin (Nitroglycerin Sl 0.4 Mg/Tab Tab) 0.4 mg SL UD PRN PRN Reason: Chest Pain Stop: 07/14/22 05:48 Polyethylene Glycol (Polyethylene (Miralax) 17 Gm Pack) 17 gm PO DAILY PRN PRN Reason: Constipation Stop: 07/14/22 05:48
--- NOTE | 2022-06-14 11:01 | Electrocardiogram Report ---
Test Reason : Blood Pressure : / mmHG Vent. Rate : 145 BPM Atrial Rate : 145 BPM P-R Int : 088 ms QRS Dur : 154 ms QT Int : 366 ms P-R-T Axes : 000 -14 233 degrees QTc Int : 568 ms Possibly sinus tachycardia vs atrial flutter Left bundle branch block Abnormal ECG When compared with ECG of 14-JUN-2022 01:18, (unconfirmed) Premature atrial complexes are no longer Present UT interval has decreased Questionable change in QRS axis Confirmed by Austen Lagos ([id number]) on 06/14/2022 11:01:34 AM Referred By: REFERRED SELF Confirmed By:Krishan Lagos
--- NOTE | 2022-06-14 11:03 | Electrocardiogram Report ---
Test Reason : Blood Pressure : / mmHG Vent. Rate : 179 BPM Atrial Rate : 179 BPM P-R Int : 120 ms QRS Dur : 150 ms QT Int : 274 ms P-R-T Axes : 000 050 108 degrees QTc Int : 473 ms Poor data quality, interpretation may be adversely affected wide complex tachycardia Non-specific intra-ventricular conduction block Possible Lateral infarct , age undetermined Abnormal ECG No previous ECGs available Confirmed by Austen Lagos ([id number]) on 06/14/2022 11:02:50 AM Referred By: REFERRED SELF Confirmed By:Krishan Lagos
[2022-06-14] MEDS ORDERED: BENZOCAINE/TETRACAIN/BUTAM 50 APPLN/5 GM CAN EXT ONE (11:14)
[2022-06-14] MEDS ORDERED: KETAMINE 50 MG/5 ML SYRINGE ONE (11:39)
[2022-06-14] MEDS ORDERED: PROPOFOL IV EMULSION 10 MG/ML 20 ML VIAL IV ONE (11:39)
--- NOTE | 2022-06-14 11:51 | Anesthesiology Consultation ---
Date of Service June 14, 2022 Assessment & Plan (1) Encounter for pre-operative examination: Chart Review Chart Review: Acceptable Risk for Surgery and Patient NOT seen in Pre Admission Testing Consults Requested none History Surgery Operation Date: 06/14/22 12:00 Proposed Procedures p Transesophageal Echo - Hank Mitchell MD Height/Weight Height: 5 ft 3 in Weight: 187.2 kg Allergies Allergy/AdvReac Type Severity Reaction Status Date / Time No Known Allergies Allergy Mild Unverified 11/19/14 06:26 Medications Active Medications Generic Name Dose Route Start Last Admin Trade Name Freq PRN Reason Stop Dose Admin Heparin Sodium/Dextrose 25,000 units in 500 mls @ 20 mls/hr 06/14/22 04:00 06/14/22 04:57 Heparin Sodium/Dextrose IV 07/14/22 03:59 1,000 units/hr .Q24H HERNANDEZ 20 mls/hr Administration Protocol 1,000 UNITS/HR Metoprolol Tartrate 25 mg 06/14/22 08:00 06/14/22 09:54 Metoprolol Tartrate 25 Mg Tab PO 07/14/22 07:59 25 mg Q6H HERNANDEZ Administration Social History Smoking Status: Never smoker Do You Dip or Chew Tobacco: No Hx Alcohol Use: No Hx Substance Use: No Physical Exam Vital Signs Last Vital Signs Temp 97.9 F 06/14/22 08:20 Pulse 146 H 06/14/22 09:54 Resp 20 06/14/22 08:20 BP 107/80 06/14/22 09:54 Pulse Ox 92 06/14/22 08:20 O2 Del Method Room Air 06/14/22 08:20 Testing Laboratory Results 06/14/22 06:52 06/14/22 06:52 PT 13.1 Seconds (9.0-12.0) H 06/14/22 01:45 INR 1.2 (0.9-1.1) H 06/14/22 01:45 APTT 27.6 Seconds (21.0-31.0) 06/14/22 01:45 06/14/22 06/14/22 05:33 01:48 POC Glucose 118 H POC Glucose (other) 133 H Echocardiogram Date: 06/13/22 EF: 20% LV Function: dysfunctional
[2022-06-14 11:54] LABS: Partial Thromboplastin Ratio 1.1; Partial Thromboplastin Time 31.4 Seconds (21.0-31.0)
--- NOTE | 2022-06-14 12:17 | Cardioversion ---
Date of Service June 14, 2022 Electrical Cardioversion Rpt Electrical Cardioversion Report Patient seen and examined procedure of transesophageal guided synchronized electrical cardioversion discussed in detail with patient. Informed consents obtained. Formal timeout performed. Posterior oropharynx and anesthetized topically Patient sedated via anesthesia consultation with continuous heart rate, blood pressure, end-tidal CO2 monitoring. Transesophageal echocardiogram performed without difficulty. Study demonstrating diffuse LV dysfunction but no left atrial appendage thrombus. No significant valvular disease Probe was removed and patient repositioned Synchronized electrical cardioversion performed using 100 J biphasic countershock with successful conversion to sinus rhythm with left bundle branch block/IVCD configuration. Patient aroused having tolerated well EKG postconversion: Sinus rhythm at 76 bpm with left bundle branch block configuration, QT corrected 499, rate 76 bpm
--- NOTE | 2022-06-14 13:28 | Anesthesiology Progress Note ---
Date of Service June 14, 2022 Anesthesia Post Procedure Vital Signs Vital Signs: Temp Pulse Pulse Pulse Resp BP BP 06/14/22 12:45 98.2 F 74 18 117/73 06/14/22 12:30 75 16 117/91 06/14/22 12:15 77 16 134/96 06/14/22 11:53 97.3 F L 154 H 18 105/67 06/14/22 11:49 142 H 20 126/101 H 06/14/22 09:54 146 H 107/80 06/14/22 08:20 97.9 F 125 H 20 89/85 L 06/14/22 05:45 142 H 06/14/22 05:49 98.4 F 143 H 20 106/73 06/14/22 04:30 144 H 186/151 H 06/14/22 03:45 141 H 113/89 06/14/22 03:06 149 H 21 107/78 06/14/22 03:04 105/79 06/14/22 03:04 154 H 22 06/14/22 03:02 77/47 L 06/14/22 03:02 148 H 16 06/14/22 03:00 155 H 16 06/14/22 02:50 155 H 18 06/14/22 02:50 141/120 H 06/14/22 02:46 155 H 23 06/14/22 02:46 130/106 H 06/14/22 02:40 156 H 23 06/14/22 02:40 208/156 H 06/14/22 02:30 155 H 22 06/14/22 02:20 153 H 22 06/14/22 02:20 189/164 H 06/14/22 02:18 158/116 H 06/14/22 02:18 154 H 18 06/14/22 02:11 152 H 21 06/14/22 02:11 140/98 06/14/22 02:10 151 H 21 06/14/22 02:01 158 H 20 06/14/22 02:01 141/111 H 06/14/22 02:00 158 H 06/14/22 03:06 143 H 22 107/78 06/14/22 02:39 155 H 22 208/156 H 06/14/22 02:18 153 H 22 158/116 H 06/14/22 01:56 158/113 H 06/14/22 01:56 153 H 21 06/14/22 01:50 154 H 24 06/14/22 01:50 154/103 H 06/14/22 01:45 142/106 H 06/14/22 01:45 173 H 20 06/14/22 01:42 179 H 27 H 06/14/22 01:42 118/100 06/14/22 01:40 167 H 28 H 06/14/22 01:32 147/95 H 06/14/22 01:32 183 H 36 H 06/14/22 01:31 185 H 22 06/14/22 01:23 176 H 29 H 06/14/22 01:49 160 H 22 142/106 H 06/14/22 01:40 86 06/14/22 01:23 192 H 06/14/22 01:11 97.3 F L 155 H 22 110/76 Pulse Ox O2 Del Method 06/14/22 12:45 96 Room Air 06/14/22 12:30 96 Room Air 06/14/22 12:15 96 Room Air 06/14/22 11:53 93 Room Air 06/14/22 11:49 99 Room Air 06/14/22 09:54 06/14/22 08:20 92 Room Air 06/14/22 05:45 06/14/22 05:49 Room Air 06/14/22 04:30 06/14/22 03:45 06/14/22 03:06 95 Room Air 06/14/22 03:04 06/14/22 03:04 94 06/14/22 03:02 06/14/22 03:02 95 06/14/22 03:00 94 06/14/22 02:50 95 06/14/22 02:50 06/14/22 02:46 95 06/14/22 02:46 06/14/22 02:40 98 06/14/22 02:40 06/14/22 02:30 95 06/14/22 02:20 94 06/14/22 02:20 06/14/22 02:18 06/14/22 02:18 94 06/14/22 02:11 94 06/14/22 02:11 06/14/22 02:10 94 06/14/22 02:01 94 06/14/22 02:01 06/14/22 02:00 93 06/14/22 03:06 94 06/14/22 02:39 95 Room Air 06/14/22 02:18 94 Room Air 06/14/22 01:56 06/14/22 01:56 94 06/14/22 01:50 94 06/14/22 01:50 06/14/22 01:45 06/14/22 01:45 06/14/22 01:42 06/14/22 01:42 06/14/22 01:40 06/14/22 01:32 06/14/22 01:32 06/14/22 01:31 06/14/22 01:23 06/14/22 01:49 95 Room Air 06/14/22 01:40 06/14/22 01:23 06/14/22 01:11 96 Room Air Transfer of Care Handoff Completed per policy Notes Mental Status: alert / awake / arousable and participated in evaluation Patient Amnestic to Procedure: Yes Nausea / Vomiting: adequately controlled Pain: adequately controlled Airway Patency, RR, SpO2: stable & adequate BP & HR: stable & adequate Hydration State: stable & adequate Anesthetic Complications: no major complications apparent and Pt Satisfied with anesthetic care
[2022-06-14] MEDS ORDERED: HEPARIN IV BOLUS 4,000 UNITS in SYRINGE 0 ML IV ONE (13:45)
--- NOTE | 2022-06-14 14:04 | Communication Note ---
Date of Service: June 14, 2022 The patient was seen and examined in telemetry unit. Morbidly obese was admitted with a flutter with RVR and noted to have very low EF of 20. Has been complaining of weakness and sweating without any chest pain. Has been on intravenous beta-lynn now and intravenous heparin and has had KAYLA guided cardioversion. Rate is controlled now and in sinus rhythm. Full progress note will be done tomorrow. Dr Francisco Ravi .
--- NOTE | 2022-06-14 15:18 | Electrocardiogram Report ---
Test Reason : Blood Pressure : / mmHG Vent. Rate : 076 BPM Atrial Rate : 076 BPM P-R Int : 156 ms QRS Dur : 164 ms QT Int : 444 ms P-R-T Axes : 054 104 200 degrees QTc Int : 499 ms Normal sinus rhythm Possible Left atrial enlargement Rightward axis Non-specific intra-ventricular conduction block Abnormal ECG When compared with ECG of 14-JUN-2022 04:04, Questionable change in QRS axis T wave inversion more evident in Inferior leads Confirmed by Austen Lagos ([id number]) on 06/14/2022 3:17:51 PM Referred By: REFERRED SELF Confirmed By:Krishan Lagos
[2022-06-14 19:34] LABS: Partial Thromboplastin Ratio 1.3; Partial Thromboplastin Time 35.4 Seconds (21.0-31.0)
[2022-06-14] MEDS: METOPROLOL SUCC 25MG EXT REL TAB PO SCH (20:15)
[2022-06-14] MEDS: busPIRone 5 MG TAB PO SCH (20:16)
[2022-06-15] MEDS ORDERED: FUROSEMIDE 40 MG/4 ML VIAL IV ONE (01:20)
[2022-06-15] MEDS: HEPARIN SODIUM/DEXTROSE 25,000 UNITS/500 ML BAG IV SCH ×2 (01:35→17:24)
[2022-06-15 06:25] LABS: Basophils # (auto) 0.09 K/uL (0-0.2); Basophils % (auto) 0.5 %; Eosinophils # (auto) 0.04 K/uL (0-0.50); Eosinophils % (auto) 0.2 %; Hematocrit (blood only) 39.6 % (37.0-47.0); Immature Granulocytes # (auto) 0.07 K/uL (0.01-0.20); Immature Granulocytes % (auto) 0.4 %; Lymphocytes # (auto) 2.84 K/uL (1.2-3.4); Mean Corpuscular Hemoglobin 29.8 pg (25.0-34.0); Mean Corpuscular Hgb Conc 32.8 g/dL (32.0-36.0); Mean Corpuscular Volume 90.8 fL (80.0-100.0); Monocytes # (auto) 1.21 K/uL (0.11-0.59); Monocytes % (auto) 6.4 %; Neutrophils % (auto) 77.5 %; Platelet Count 167 K/uL (130-400); RDW Coefficient of Variation 13.4 % (11.5-14.5); RDW Standard Deviation 44.5 fL (36.4-46.3); Red Blood Count 4.36 M/uL (4.20-5.40); White Blood Count 18.95 K/ul (4.8-10.8)
[2022-06-15 06:34] LABS: BUN Creatinine Ratio 20.2 (10-20); Calcium 8.6 mg/dl (8.5-10.1); Creatinine Clr Calc Pharmacy 156.6 ml/min; Est GFR (African American) 107.3 ml/min; Est GFR (Non-African American) 92.6 ml/min; Magnesium 1.9 mg/dl (1.7-2.4); Phosphorus 3.6 mg/dl (2.5-4.9); Potassium 3.7 mmol/L (3.5-5.1)
[2022-06-15 06:53] LABS: Partial Thromboplastin Ratio 1.2; Partial Thromboplastin Time 32.5 Seconds (21.0-31.0)
[2022-06-15] MEDS ORDERED: HEPARIN SOD (PORCINE) 1000 UNIT/ML IV ONE (07:30)
[2022-06-15] MEDS: METOPROLOL SUCC 25MG EXT REL TAB PO SCH ×2 (07:53→21:11)
[2022-06-15] MEDS: busPIRone 5 MG TAB PO SCH ×2 (07:53→21:11)
--- NOTE | 2022-06-15 10:14 | Cardiology Progress Note ---
Date of Service June 15, 2022 Assessment & Plan (1) Atrial flutter with rapid ventricular response: (2) HFrEF (heart failure with reduced ejection fraction): (3) Elevated white blood cell count, unspecified: Plan Patient admitted with wide complex tachycardia, consistent with atrial flutter RVR. Initially treated with adenosine, and as HR slowed, prominent flutter waves noted. Started on IV heparin. Give persistent tachycardia, hypotension, patient underwent KAYLA guided ca rdioversion yesterday with conversion to NSR. Metoprolol tartrate transitioned to EBBB with metoprolol succinate 25 mg BID. Echo this admission demonstrated severely reduced LVEF at 20% with global hypokinesis. Possibly tachycardia induced. Continue metoprolol succinate Start lisinopril 5 mg daily and titrate as tolerated We discussed that this medication is contraindicated with . No future plans. Negative test on admission. Continue IV heparin. Will need transitioned to oral anticoagulation on discharge. Would recommend sleep med evaluation. High probability of INDERJIT. Nocturnal oximetry ordered for tonight. She continues to have elevated WBC. prelim blood cultures negative. Case discussed in detail with Dr. Mitchell. Will follow. Admission and Anticipated Discharge Date Admission Date: June 14, 2022 Supervising Physician Co-Signing Physician Notes Patient was seen and personally examined. 32-year-old female without prior history of cardiac disease who presents with symptoms of increasing shortness of breath and tachycardia since at least Tuesday of past week Presented to the ER with wide-complex tachycardia with very rapid ventricular response. Administration of adenosine demonstrated flutter waves. Rates have slowed from ventricular response rate of nearly 200-1 40-1 50 with improvement in symptoms though still tachycardic. Echocardiogram reflects newly observed diffuse cardiomyopathy Morbidly obese young female no acute distress stress No marked volume overload or congestive heart failure on exam 1. Atrial flutter with rapid response with poor tolerance. Patient underwent KAYLA guided synchronized electrical cardioversion yesterday with patient maintaining sinus rhythm. Left bundle branch block configuration remains present but no further arrhythmias Would recommend oral anticoagulation at least 1 month. Will convert heparin to Eliquis 2. Newly observed cardiomyopathy question tachycardia mediated versus cardiomyopathy induced arrhythmia. Left bundle branch block on EKG Plan as above continue Toprol. Add lisinopril Thyroid functions normal in recent past. No risk factors to suggest ischemic heart disease as etiology Iron studies will be ordered Sleep evaluation as described and plan 3. Morbid obesity: We will need to be aggressively managed and treated. Additional diagnostic imaging, cardiac catheterization, MRI, CTA coronary limited by body habitus Full assessment as described above Subjective Patient out of bed and resting comfortably. Tolerated KAYLA/CV yesterday with r eturn to NSR. Remains in NSR this morning. She reports palpitations and dyspnea improved. No dizziness. No chest pain. No orthopnea, PND or edema. Reports she has never had sleep evaluation. Review of Systems Review of Systems: All systems reviewed & are unremarkable except as noted in HPI & below Physical Exam Constitutional: WD/WN, vitals as above + morbidly obese; no acute distress Neck: + thick neck Respiratory: no respiratory distress Auscultation: + diminished lung sounds; no crackles, no rales and no rhonchi Cardiovascular: Rate/Rhythm: regular rate and regular rhythm Heart Sounds: no murmur (Distant heart sounds, no audible murmur) Vessels: no JVD (unable to assess) Extremities: + edema (trace pedal) Gastrointestinal (Abdomen): normal bowel sounds, soft, nontender, no hep atosplenomegaly Musculoskeletal: no cyanosis or clubbing, extremities motor strength 5/5 Skin: no rashes, warm and dry Neurologic: PERRL, EOMI, accommodation nl, no face palsy, no dysarthria Psychiatric: A+Ox3, euthymic affect Results & Data Vital Signs (Past 12 Hours) Vital Signs Temp Pulse Pulse Resp BP Pulse Ox O2 Del Method 06/15/22 07:41 37.1 C 89 20 148/97 H 95 Room Air 06/15/22 03:22 91 H 21 158/103 H 96 Room Air Laboratory Results Cardiac Enzymes 06/14/22 06/14/22 Range/Units 12:53 18:48 Troponin I High Sens 37.2 H 48.4 H D (0-14) pg/ml Coagulation 06/14/22 06/14/22 06/15/22 Range/Units 10:48 18:48 05:31 APTT 31.4 H 35.4 H 32.5 H (21.0-31.0) Seconds CBC 06/15/22 Range/Units 05:31 WBC 18.95 H (4.8-10.8) K/ul RBC 4.36 (4.20-5.40) M/uL Hgb 13.0 (12.0-16.0) g/dl Hct 39.6 (37.0-47.0) % Plt Count 167 (130-400) K/uL Neut # (Auto) 14.70 H (1.40-6.50) K/uL Lymph # (Auto) 2.84 (1.2-3.4) K/uL [place] # (Auto) 1.21 H (0.11-0.59) K/uL Eos # (Auto) 0.04 (0-0.50) K/uL Baso # (Auto) 0.09 (0-0.2) K/uL Comprehensive Metabolic Panel 06/15/22 Range/Units 05:31 Sodium 139 (136-145) mmol/L Potassium 3.7 (3.5-5.1) mmol/L Chloride 103 (98-107) mmol/L Carbon Dioxide 26 (21-32) mmol/L BUN 17 (6-23) mg/dl Creatinine 0.84 (0.6-1.2) mg/dl Glucose 100 H (70-99(Fasting)) mg/dl Calcium 8.6 (8.5-10.1) mg/dl Intake and Output 06/14/22 06/15/22 06/15/22 22:59 06:59 14:59 Intake Total 965.2 / 1807.534 451.667 / 1807.534 159.600 / 159.600 Balance 965.2 / 1807.534 451.667 / 1807.534 159.600 / 159.600 Intake: IV 165.2 / 707.534 151.667 / 707.534 159.600 / 159.600 Heparin Sodium/Dextrose 25,000 165.2 / 483.534 151.667 / 483.534 159.600 / 159.600 units In 500 ml @ 1,400 UNITS/ HR 28 mls/hr IV .[id number] [facility] Rx #:[id number] Oral 800 / 1100 300 / 1100 Other: # Unmeasured Voids 3 Weight 177 kg Diagnostic Findings EKG this morning: NSR with LAD, LBBB Telemetry reviewed: NSR with conduction delay, Heart rates 80-100 bpm. No recurrent atrial flutter since CV yesterday afternoon. Echo reviewed LV is mildly dilated Severe global hypokinesis of the LV Septal motion is consistent with conduction abnormality EF= 20-25% No gross valvular disease with limited visualization Medications Administered Current Inpatient Medications Acetaminophen (Acetaminophen 325 Mg Tab) 650 mg PO Q4H PRN PRN Reason: Pain or Fever Stop: 07/14/22 05:48 Buspirone HCl (Buspirone 5 Mg Tab) 5 mg PO BID [facility] Stop: 07/14/22 20:59 Last Admin: 06/15/22 07:53 Dose: 5 mg Heparin Sodium/Dextrose (Heparin Sodium/Dextrose) 25,000 units in 500 mls @ 28 mls/hr IV .[id number] [facility]; Protocol Stop: 07/14/22 03:59 Last Titration: 06/15/22 07:17 Dose: 1,600 units/hr, 32 mls/hr Metoprolol Succinate (Metoprolol Succ 25mg Ext Rel Tab) 25 mg PO BID [facility] Stop: 07/14/22 20:59 Last Admin: 06/15/22 07:53 Dose: 25 mg Metoprolol Tartrate (Metoprolol Tartrate 1 Mg/Ml Vial) 5 mg IV Q6 PRN PRN Reason: Tachycardia Stop: 07/14/22 05:48 Nitroglycerin (Nitroglycerin Sl 0.4 Mg/Tab Tab) 0.4 mg SL UD PRN PRN Reason: Chest Pain Stop: 07/14/22 05:48 Polyethylene Glycol (Polyethylene (Miralax) 17 Gm Pack) 17 gm PO DAILY PRN PRN Reason: Constipation Stop: 07/14/22 05:48
--- NOTE | 2022-06-15 10:58 | Electrocardiogram Report ---
Test Reason : Blood Pressure : / mmHG Vent. Rate : 086 BPM Atrial Rate : 086 BPM P-R Int : 146 ms QRS Dur : 170 ms QT Int : 428 ms P-R-T Axes : 058 042 224 degrees QTc Int : 512 ms Normal sinus rhythm Possible Left atrial enlargement Left bundle branch block Abnormal ECG Confirmed by Austen Lagos ([id number]) on 06/15/2022 10:57:58 AM Referred By: REFERRED SELF Confirmed By:Krishan Lagos
[2022-06-15] MEDS: lisinopril 5 MG TAB PO SCH (12:06)
[2022-06-15] MEDS ORDERED: POTASSIUM CHLORIDE CRTAB 20 MEQ TABCR PO ONE (14:19)
--- NOTE | 2022-06-15 15:02 | Hospitalist Progress Note ---
Date of Service June 15, 2022 Assessment & Plan (1) Atrial flutter with rapid ventricular response: Plan: Presented with palpitation for 2 to 3 days prior to admission Associated dizziness but no chest pain Noted to be in a flutter with rapid ventricular response Started with intravenous amiodarone later on discontinued Appreciate cardiology input and recommendation Status post KAYLA guided cardioversion on 06/14/2022 Now in sinus rhythm and has been feeling a lot better Continue intravenous heparin and with transition to Eliquis (2) HFrEF (heart failure with reduced ejection fraction): Plan: Echo did show reduced EF of 20% Likely secondary to tachycardia Started with metoprolol succinate and also lisinopril 5 mg from today We will monitor in the telemetry unit (3) Elevated white blood cell count, unspecified: Plan: Noted to have leukocytosis No signs and or symptoms of infection Clear stress-induced Other chronic medical conditions remained stable as below History of anxiety/depression-has been on buspirone Remote history of asthma as per the note No acute issues DVT prophylaxis Intravenous heparin CODE STATUS Full Admission and Anticipated Discharge Date Admission Date: June 14, 2022 Subjective 06/15/2022 The patient was seen and examined in telemetry unit She has been feeling much better following KAYLA guided cardioversion Has been in sinus rhythm and the blood pressure is normal at 123/82 Denies any significant symptoms Review of Systems Review of Systems: All systems reviewed and are unremarkable except as noted below Cardiovascular: Additional Comments: No chest pain and/or palpitation Physical Exam Physical Exam: Sitting on a chair without any acute distress Constitutional: well developed, well nourished and + morbidly obese; not ill appearing Eyes: PERRL, conjunctivae normal, anicteric sclerae ENMT: external ear and nose normal, oropharynx normal Neck: trachea midline, no thyromegaly Respiratory: no respiratory distress Auscultation: + diminished lung sounds and + crackles (Minimal crackles at the bases) Cardiovascular: Rate/Rhythm: regular rate and regular rhythm; not tachycardic Heart Sounds: normal S1 and normal S2; no murmur Extremities: + edema (1+ edema bilaterally) Gastrointestinal (Abdomen): Inspection/Auscultation: + abdomen distended and normal bowel sounds Percussion/Palpation: abdomen soft; abdomen nontender Musculoskeletal: No acute arthritis involving any joint Neurologic: normal touch/pain/proprioception and moves all extremities; no focal motor deficits Psychiatric: A+Ox3, euthymic affect Lymphatic: no cervical or axillary lymphadenopathy Results & Data Results & Data Vital Signs (Past 12 Hours) Vital Signs Temp Pulse Pulse Resp BP Pulse Ox O2 Del Method 06/15/22 11:00 37.0 C 86 16 123/82 95 Room Air 06/15/22 10:41 Room Air 06/15/22 07:41 37.1 C 89 20 148/97 H 95 Room Air 06/15/22 03:22 91 H 21 158/103 H 96 Room Air Laboratory Results Short CBC 06/15/22 Range/Units 05:31 WBC 18.95 H (4.8-10.8) K/ul Hgb 13.0 (12.0-16.0) g/dl Hct 39.6 (37.0-47.0) % Plt Count 167 (130-400) K/uL BMP 06/15/22 05:31 Sodium 139 Potassium 3.7 Chloride 103 Carbon Dioxide 26 BUN 17 Creatinine 0.84 Glucose 100 H Calcium 8.6 Medications Administered Current Inpatient Medications Acetaminophen (Acetaminophen 325 Mg Tab) 650 mg PO Q4H PRN PRN Reason: Pain or Fever Stop: 07/14/22 05:48 Buspirone HCl (Buspirone 5 Mg Tab) 5 mg PO BID [facility] Stop: 07/14/22 20:59 Last Admin: 06/15/22 07:53 Dose: 5 mg Heparin Sodium/Dextrose (Heparin Sodium/Dextrose) 25,000 units in 500 mls @ 32 mls/hr IV .[id number] [facility]; Protocol Stop: 07/14/22 03:59 Last Titration: 06/15/22 07:17 Dose: 1,600 units/hr, 32 mls/hr Lisinopril (Lisinopril 5 Mg Tab) 5 mg PO QAM [facility] Stop: 07/15/22 10:29 Last Admin: 06/15/22 12:06 Dose: 5 mg Metoprolol Succinate (Metoprolol Succ 25mg Ext Rel Tab) 25 mg PO BID [facility] Stop: 07/14/22 20:59 Last Admin: 06/15/22 07:53 Dose: 25 mg Metoprolol Tartrate (Metoprolol Tartrate 1 Mg/Ml Vial) 5 mg IV Q6 PRN PRN Reason: Tachycardia Stop: 07/14/22 05:48 Nitroglycerin (Nitroglycerin Sl 0.4 Mg/Tab Tab) 0.4 mg SL UD PRN PRN Reason: Chest Pain Stop: 07/14/22 05:48 Polyethylene Glycol (Polyethylene (Miralax) 17 Gm Pack) 17 gm PO DAILY PRN PRN Reason: Constipation Stop: 07/14/22 05:48
[2022-06-15 15:30] LABS: Partial Thromboplastin Time 26.6 Seconds (21.0-31.0)
[2022-06-15] MEDS: APIXABAN 5 MG TABLET PO SCH (18:12)
[2022-06-16 07:18] LABS: Basophils # (auto) 0.05 K/uL (0-0.2); Basophils % (auto) 0.5 %; Eosinophils # (auto) 0.22 K/uL (0-0.50); Hematocrit (blood only) 37.8 % (37.0-47.0); Hemoglobin 12.4 g/dl (12.0-16.0); Immature Granulocytes # (auto) 0.03 K/uL (0.01-0.20); Immature Granulocytes % (auto) 0.3 %; Lymphocytes # (auto) 1.88 K/uL (1.2-3.4); Mean Corpuscular Hemoglobin 29.7 pg (25.0-34.0); Mean Corpuscular Hgb Conc 32.8 g/dL (32.0-36.0); Mean Corpuscular Volume 90.4 fL (80.0-100.0); Mean Platelet Volume 13.3 fL (9.4-12.4); Monocytes # (auto) 0.86 K/uL (0.11-0.59); Monocytes % (auto) 7.8 %; Neutrophils # (auto) 7.99 K/uL (1.40-6.50); Neutrophils % (auto) 72.4 %; Platelet Count 145 K/uL (130-400); RDW Coefficient of Variation 13.4 % (11.5-14.5); RDW Standard Deviation 43.7 fL (36.4-46.3); Red Blood Count 4.18 M/uL (4.20-5.40); White Blood Count 11.03 K/ul (4.8-10.8)
[2022-06-16 07:48] LABS: BUN Creatinine Ratio 22.1 (10-20); Calcium 8.7 mg/dl (8.5-10.1); Creatinine Clr Calc Pharmacy 178.9 ml/min; Est GFR (African American) 135.1 ml/min; Est GFR (Non-African American) 116.6 ml/min; Potassium 3.5 mmol/L (3.5-5.1)
[2022-06-16] MEDS: METOPROLOL SUCC 25MG EXT REL TAB PO SCH (08:24)
[2022-06-16] MEDS: lisinopril 5 MG TAB PO SCH (08:25)
[2022-06-16] MEDS: busPIRone 5 MG TAB PO SCH (08:25)
[2022-06-16] MEDS: APIXABAN 5 MG TABLET PO SCH (08:25)
--- NOTE | 2022-06-16 11:15 | Cardiology Progress Note ---
Date of Service June 16, 2022 Assessment & Plan (1) Atrial flutter with rapid ventricular response: (2) HFrEF (heart failure with reduced ejection fraction): (3) Elevated white blood cell count, unspecified: Plan Patient admitted with wide complex tachycardia, consistent with atrial flutter RVR with LBBB. Initially treated with adenosine, and as HR slowed, prominent flutter waves noted. Started on IV heparin. Give persistent tachycardia/hypotension/cardiomyopathy, patient underwent KAYLA guided cardioversion with conversion to NSR. Metoprolol tartrate transitioned to EBBB with metoprolol succinate 25 mg BID. IV heparin transitioned to oral Eliquis 5 mg BID for anticoagulation. [id number] score is low at 2 (sex, CHF). If she remains in NSR and LV function improves, likely will be able to discontinue anticoagulation. Must take for at least 30 days, then will re-jordan luate. Echo this admission demonstrated severely reduced LVEF at 20% with global hypokinesis. Possibly tachycardia induced. Continue metoprolol succinate Lisinopril initiated. BP improved. We discussed that lisinopril is contraindicated with . No future plans. Negative test on admission. Further evaluation of cardiomyopathy is limited. Unable to proceed with cardiac cath or cardiac MRI due to body habitus/weight. Nocturnal oximetry last evening was without significant hypoxia or signs of INDERJIT. WBC trending down. Blood cultures negative so far. Stable cardiac symptoms for discharge on appropriate medications including Eliquis, metoprolol, lisinopril. Recommend referral to weight loss clinic as well. Will need cardiology f/u in 2-4 weeks. Case discussed in detail with Dr. Mitchell. Admission and Anticipated Discharge Date Admission Date: June 14, 2022 Supervising Physician Co-Signing Physician Notes Patient seen and examined, chart, telemetry reviewed. Patient feels well ambulatory in room without difficulty no signs of fluid retention. No further arrhythmias on telemetry. Plan as outlined continue metoprolol succinate 25 mg twice per day, lisinopril 5 mg/day. Add potassium chloride 10 mill colons daily Eliquis 5 mg twice per day Patient to follow-up with cardiology clinic in 2 to 4 weeks time Repeat echocardiogram at that time Subjective Patient feeling well this morning. SOB improved and at baseline. No chest pain. No dizziness or lightheadedness. No palpitations. No recurrent atrial arrhythmias. Review of Systems Review of Systems: All systems reviewed & are unremarkable except as noted in HPI & below Physical Exam Physical Exam: Sitting on a chair without any acute distress Constitutional: well developed, well nourished and + morbidly obese; not ill appearing Neck: trachea midline, no thyromegaly Respiratory: no respiratory distress Auscultation: + diminished lung sounds; no crackles and no rales Cardiovascular: Rate/Rhythm: regular rate and regular rhythm; not tachycardic Heart Sounds: normal S1 and normal S2; no murmur Extremities: + edema (1+ edema bilaterally) Gastrointestinal (Abdomen): Inspection/Auscultation: + abdomen distended and normal bowel sounds Percussion/Palpation: abdomen soft; abdomen nontender Musculoskeletal: No acute arthritis involving any joint Neurologic: normal touch/pain/proprioception and moves all extremities; no focal motor deficits Psychiatric: A+Ox3, euthymic affect Results & Data Vital Signs (Past 12 Hours) Vital Signs Temp Pulse Pulse Resp BP Pulse Ox Pulse Ox 06/16/22 09:47 06/16/22 07:50 37.0 C 80 19 145/82 H 97 06/16/22 04:17 98 H 94 06/16/22 01:30 90 93 06/16/22 03:23 36.7 C 84 20 132/83 95 06/15/22 23:17 36.3 C L 80 16 129/83 93 O2 Del Method O2 Del Method 06/16/22 09:47 Room Air 06/16/22 07:50 Room Air 06/16/22 04:17 Room Air 06/16/22 01:30 Room Air 06/16/22 03:23 Room Air 06/15/22 23:17 Room Air Laboratory Results Coagulation 06/15/22 Range/Units 14:32 APTT 26.6 (21.0-31.0) Seconds CBC 06/16/22 Range/Units 06:49 WBC 11.03 H (4.8-10.8) K/ul RBC 4.18 L (4.20-5.40) M/uL Hgb 12.4 (12.0-16.0) g/dl Hct 37.8 (37.0-47.0) % Plt Count 145 (130-400) K/uL Neut # (Auto) 7.99 H (1.40-6.50) K/uL Lymph # (Auto) 1.88 (1.2-3.4) K/uL [place] # (Auto) 0.86 H (0.11-0.59) K/uL Eos # (Auto) 0.22 (0-0.50) K/uL Baso # (Auto) 0.05 (0-0.2) K/uL Comprehensive Metabolic Panel 06/16/22 Range/Units 06:49 Sodium 140 (136-145) mmol/L Potassium 3.5 (3.5-5.1) mmol/L Chloride 104 (98-107) mmol/L Carbon Dioxide 28 (21-32) mmol/L BUN 15 (6-23) mg/dl Creatinine 0.68 (0.6-1.2) mg/dl Glucose 87 (70-99(Fasting)) mg/dl Calcium 8.7 (8.5-10.1) mg/dl Intake and Output 06/15/22 06/16/22 06/16/22 22:59 06:59 14:59 Intake Total 136.4 / 1116.000 100 / 1116.000 Balance 136.4 / 1116.000 100 / 1116.000 Intake: IV 136.4 / 296.000 Heparin Sodium/Dextrose 25,000 136.4 / 296.000 units In 500 ml @ 1,600 UNITS/ HR 32 mls/hr IV .[id number] [facility] Rx #:[id number] Oral 100 / 820 Other: Other Intake Source sips Weight 157.7 kg Diagnostic Findings Telemetry reviewed: NSR with intraventricular conduction delay. No recurrent atrial arrhythmias
--- NOTE | 2022-06-16 11:23 | Hospitalist Progress Note ---
Date of Service June 16, 2022 Assessment & Plan (1) Atrial flutter with rapid ventricular response: Plan: Presented with palpitation for 2 to 3 days prior to admission Associated dizziness but no chest pain Noted to be in a flutter with rapid ventricular response Started with intravenous amiodarone later on discontinued Appreciate cardiology input and recommendation Status post KAYLA guided cardioversion on 06/14/2022 Now in sinus rhythm and has been feeling a lot better Continue intravenous heparin and with transition to Eliquis Remains stable following cardioversion without any cardiac symptoms Will need anticoagulation for about a month (2) HFrEF (heart failure with reduced ejection fraction): Plan: Echo did show reduced EF of 20% Likely secondary to tachycardia Started with metoprolol succinate and also lisinopril 5 mg from today We will monitor in the telemetry unit We will continue with beta-lynn and lisinopril Will have cardiology appointment within 2 to 4 weeks (3) Elevated white blood cell count, unspecified: Plan: Noted to have leukocytosis No signs and or symptoms of infection Likely secondary to stress and the numbers are coming down Other chronic medical conditions remained stable as below History of anxiety/depression-has been on buspirone Remote history of asthma as per the note No acute issues Nocturnal pulse oximetry did show significant desaturation Discussed with the respiratory therapist and she will need 2 L of oxygen at nighttime to maintain saturation We will advise for outpatient sleep study DVT prophylaxis Intravenous heparin CODE STATUS Full Admission and Anticipated Discharge Date Admission Date: June 14, 2022 Subjective 06/15/2022 The patient was seen and examined in telemetry unit She has been feeling much better following KAYLA guided cardioversion Has been in sinus rhythm and the blood pressure is normal at 123/82 Denies any significant symptoms 06/16/2022 The patient was seen and examined in telemetry unit She has been feeling a lot better and denies any significant symptoms She has been ambulating in the room and in the hallway without any difficulties She will be discharged home this afternoon Review of Systems Review of Systems: All systems reviewed and are unremarkable except as noted below Cardiovascular: Additional Comments: No chest pain and/or palpitation Physical Exam Physical Exam: Sitting at the edge of the bed without any acute distress Constitutional: well developed, well nourished and + morbidly obese; not ill appearing Eyes: PERRL, conjunctivae normal, anicteric sclerae ENMT: external ear and nose normal, oropharynx normal Neck: trachea midline, no thyromegaly Respiratory: no respiratory distress Auscultation: + diminished lung sounds; no crackles (Minimal crackles at the bases) Cardiovascular: Rate/Rhythm: regular rate and regular rhythm; not tachycardic Heart Sounds: normal S1 and normal S2; no murmur Extremities: + edema (1+ edema bilaterally) Gastrointestinal (Abdomen): Inspection/Auscultation: + abdomen distended and normal bowel sounds Percussion/Palpation: abdomen soft; abdomen nontender Musculoskeletal: No acute arthritis in any joint Neurologic: normal touch/pain/proprioception and moves all extremities; no focal motor deficits Psychiatric: A+Ox3, euthymic affect Lymphatic: no cervical or axillary lymphadenopathy Results & Data Results & Data Vital Signs (Past 12 Hours) Vital Signs Temp Pulse Pulse Resp BP Pulse Ox Pulse Ox 06/16/22 09:47 06/16/22 07:50 37.0 C 80 19 145/82 H 97 06/16/22 04:17 98 H 94 06/16/22 01:30 90 93 06/16/22 03:23 36.7 C 84 20 132/83 95 O2 Del Method O2 Del Method 06/16/22 09:47 Room Air 06/16/22 07:50 Room Air 06/16/22 04:17 Room Air 06/16/22 01:30 Room Air 06/16/22 03:23 Room Air Laboratory Results Short CBC 06/16/22 Range/Units 06:49 WBC 11.03 H (4.8-10.8) K/ul Hgb 12.4 (12.0-16.0) g/dl Hct 37.8 (37.0-47.0) % Plt Count 145 (130-400) K/uL BMP 06/16/22 06:49 Sodium 140 Potassium 3.5 Chloride 104 Carbon Dioxide 28 BUN 15 Creatinine 0.68 Glucose 87 Calcium 8.7 Medications Administered Current Inpatient Medications Acetaminophen (Acetaminophen 325 Mg Tab) 650 mg PO Q4H PRN PRN Reason: Pain or Fever Stop: 07/14/22 05:48 Apixaban (Apixaban 5 Mg Tablet) 5 mg PO BID [facility] Stop: 07/15/22 17:14 Last Admin: 06/16/22 08:25 Dose: 5 mg Buspirone HCl (Buspirone 5 Mg Tab) 5 mg PO BID [facility] Stop: 07/14/22 20:59 Last Admin: 06/16/22 08:25 Dose: 5 mg Lisinopril (Lisinopril 5 Mg Tab) 5 mg PO QAM [facility] Stop: 07/15/22 10:29 Last Admin: 06/16/22 08:25 Dose: 5 mg Metoprolol Succinate (Metoprolol Succ 25mg Ext Rel Tab) 25 mg PO BID [facility] Stop: 07/14/22 20:59 Last Admin: 06/16/22 08:24 Dose: 25 mg Metoprolol Tartrate (Metoprolol Tartrate 1 Mg/Ml Vial) 5 mg IV Q6 PRN PRN Reason: Tachycardia Stop: 07/14/22 05:48 Nitroglycerin (Nitroglycerin Sl 0.4 Mg/Tab Tab) 0.4 mg SL UD PRN PRN Reason: Chest Pain Stop: 07/14/22 05:48 Polyethylene Glycol (Polyethylene (Miralax) 17 Gm Pack) 17 gm PO DAILY PRN PRN Reason: Constipation Stop: 07/14/22 05:48
--- NOTE | 2022-06-16 12:09 | Electrocardiogram Report ---
Test Reason : Blood Pressure : / mmHG Vent. Rate : 084 BPM Atrial Rate : 084 BPM P-R Int : 142 ms QRS Dur : 170 ms QT Int : 440 ms P-R-T Axes : 042 045 183 degrees QTc Int : 519 ms Normal sinus rhythm Left bundle branch block Abnormal ECG When compared with ECG of 15-JUN-2022 05:40, T wave inversion less evident in Inferior leads Confirmed by Austen Lagos ([id number]) on 06/16/2022 12:08:50 PM Referred By: REFERRED SELF Confirmed By:Krishan Lagos
[2022-06-16] MEDS ORDERED: POTASSIUM CHLORIDE CRTAB 20 MEQ TABCR PO ONE (14:00)
--- NOTE | 2022-06-16 17:34 | Discharge Summary ---
Date of Service June 16, 2022 Admission HPI Per Admitting Provider DICTATED BY:Andrea Galvin MD DATE OF ADMISSION: 06/14/2022 CHIEF COMPLAINT: Palpitation. HISTORY OF PRESENT ILLNESS: A 32-year-old female with past medical history significant for morbid obesity, generalized anxiety disorder, depression, panic attacks, stress reaction, history of tonsillitis, presents with palpitations going on since last Tuesday. She initially felt dizzy, short of breath and chest pain which all got resolved, but the palpitations is not getting better. That is the reason she came here. Initially when she came, her heart rates 150s-200s seemed SVT, and she was given adenosine 6 and 12 mg and then she broke into what looks like atrial flutter. She was given IV Cardizem 20 mg but the heart rate was still high, so she was started on amiodarone bolus 150 mg and started on drip. Heart rate was still in the 140s, blood pressure was soft though difficult to accurately BP because of body habitus.. ER called cardiology on-call and she was started on low-dose heparin given , 25 mg p.o. Lopressor and IV Lopressor 5 mg and monitored. The patient is currently alert and awake. Denies any chest pain, denies any shortness of breath, no nausea, no abdominal pain, no headache, no blurred visions, no runny nose, no cough, no fevers. Appetite is okay, eating is okay. Earlier she had nausea, but it improved. Normal bowel and bladder movements. Denies any hematuria, denies any blood in stools or black stools. Denies any swelling in the legs. Admission Exam Per Admitting Provider GENERAL: The patient is morbidly obese. VITAL SIGNS: Temperature 36.3, pulse 144, respiratory rate 21, blood pressure 113/89, oxygen 93% on room air. HEENT: Pupils equal, round and reactive to light. Oral mucosa moist. NECK: No JVD, no neck masses. CARDIOVASCULAR: S1 and S2 heard. Tachycardia. No murmurs. RESPIRATORY SYSTEM: Normal AP diameter. No accessory muscle use. Occasional wheezing, no crackles. ABDOMEN: Soft, bowel sounds present, nontender, no distention. CENTRAL NERVOUS SYSTEM: Alert and oriented. Speech is clear. No facial droop. Obeys simple commands. Moves extremities. EXTREMITIES: Pedal edema present, no erythema seen. Principal Diagnosis Atrial flutter with rapid ventricular response status post cardioversion with reversion to sinus rhythm, heart failure with reduced EF, nocturnal desaturation Discharge Exam Sitting at the edge of the bed without any acute distress Constitutional well developed, well nourished and + morbidly obese; not ill appearing Eyes PERRL, conjunctivae normal, anicteric sclerae ENMT external ear and nose normal, oropharynx normal Neck trachea midline, no thyromegaly Respiratory no respiratory distress Auscultation: + diminished lung sounds; no crackles (Minimal crackles at the bases) Cardiovascular Rate/Rhythm: regular rate and regular rhythm; not tachycardic Heart Sounds: normal S1 and normal S2; no murmur Extremities: + edema (1+ edema bilaterally) Gastrointestinal (Abdomen) Inspection/Auscultation: + abdomen distended and normal bowel sounds Percussion/Palpation: abdomen soft; abdomen nontender Neurologic normal touch/pain/proprioception and moves all extremities; no focal motor deficits Psychiatric A+Ox3, euthymic affect Lymphatic no cervical or axillary lymphadenopathy Discharge Data Allergies Allergy/AdvReac Type Severity Reaction Status Date / Time No Known Allergies Allergy Mild Unverified 11/19/14 06:26 Consultations 06/14/22 02:37 ED Decision to Admit Stat 06/14/22 08:00 Consult Cardiology Routine Procedures Performed Operation Date: 06/14/22 12:00 Actual Procedures p Echo Transesophageal - Hank Mitchell MD s Cardioversion - Hank Mitchell MD s Echo Color Flow - Hank Mitchell MD s Echo Doppler Complete - Hank Mitchell MD Hospital Course (1) Atrial flutter with rapid ventricular response: Presented with palpitation for 2 to 3 days prior to admission Associated dizziness but no chest pain Noted to be in a flutter with rapid ventricular response Started with intravenous amiodarone later on discontinued Appreciate cardiology input and recommendation Status post KAYLA guided cardioversion on 06/14/2022 Now in sinus rhythm and has been feeling a lot better Continue intravenous heparin and with transition to Eliquis Remains stable following cardioversion without any cardiac symptoms Will need anticoagulation for about a month (2) HFrEF (heart failure with reduced ejection fraction): Echo did show reduced EF of 20% Likely secondary to tachycardia Started with metoprolol succinate and also lisinopril 5 mg from today We will monitor in the telemetry unit We will continue with beta-lynn and lisinopril Will have cardiology appointment within 2 to 4 weeks (3) Elevated white blood cell count, unspecified: Noted to have leukocytosis No signs and or symptoms of infection Likely secondary to stress and the numbers are coming down Other chronic medical conditions remained stable as below History of anxiety/depression-has been on buspirone Remote history of asthma as per the note No acute issues Nocturnal pulse oximetry did show significant desaturation Discussed with the respiratory therapist and she will need 2 L of oxygen at nighttime to maintain saturation We will advise for outpatient sleep study DVT prophylaxis Intravenous heparin CODE STATUS Full Total Time Total Time Spent Total Time Spent (In Minutes): 35 minutes Discharge Plan Discharge Items Patient Disposition: Home - Self-Care Reason For Visit: TACHYCARDIA Discharge Diagnosis: Atrial flutter with rapid ventricular response status post cardioversion with reversion to sinus rhythm, heart failure with reduced EF, nocturnal desaturation Condition on Discharge: Fair Activity: Resume your previous activity Non-emergency contact: Primary Care Provider Call non-emergency contact if: you have any medication questions and your symptoms worsen Follow-up/Referrals: Gail Alejandro PA-C [Physician Embroidery Operator] - (The cardiology office will call you with an appointment.) Cordelia Richards MD [Primary Care Provider] - (Date & Time 06/18/2022 11:40 AM Provider Cordelia Richards MD [facility] ) Diet: Heart Healthy Addtl Attending Provider Instructions: Please take precautions to avoid falls Take your medications as advised You need to have an outpatient sleep study down the line Eliquis should be continued for about a month as per the ground support equipment assembler Keep taking oxygen at nighttime Please give appointment with your healthcare providers Pending Studies at Discharge: No Stand-Alone Forms: My [facility] Coffee Meets Bagel, Smoking Cessation Medications and DC Order Prescriptions: New buspirone 5 mg Tablet 5 mg PO BID 30 Days Qty: 60 0RF lisinopril [Zestril] 5 mg Tablet 5 mg PO QAM 30 Days Qty: 30 0RF metoprolol succinate 25 mg Tablet Extended Release 24 Hr 25 mg PO BID 30 Days Qty: 60 0RF Eliquis 5 mg Tablet 5 mg PO BID 30 Days Qty: 60 0RF Discharge Orders: Discharge Order- CHF (Routine); Ordered 06/16/22 Ordered By: Kristen Ravi Admission Data Admit Date/Time: 06/14/22 04:34 Attending Provider: Kristen aRvi Admit Provider: Andrea Galvin Primary Care Provider: Cordelia Richards Other Providers: Andrea Galvin ; Hank Mitchell Other Interventions: Discharge Summary Assessment (RN) Last Done: 06/16/22 13:25
[2022-06-17] MEDS ORDERED: POTASSIUM CHLORIDE 10 MEQ TABCR PO SCH (09:00)
== END 2022-06-16 15:03 | disposition home or self-care (01) | DRG 309 ==
LOC: ED 01:06 → 4W 04:34 → 2S 12:48